=== PATIENT | female | born 1985 | race Caucasian/White ===

== ENCOUNTER 2017-10-09 17:31 | Inpatient (IN) | payer OTHER ==
[2017-10-09] MEDS: Acetaminophen 325 MG Tab PO PRN (18:58)
--- NOTE | 2017-10-09 19:29 | PCM.LDHP ---
<Marky Lou L - Last Filed: 10/09/17 20:41> L&D History of Present Illness - General Admit Problem/Dx: Patient Status Order with Admit Dx/Problem 10/09/17 17:43 Patient Status [ADT] Routine Admission Diagnosis/Problem Admission Diagnosis/Problem and not yet delivered in third trimester 10/09/17 19:47 DATE OF ADMISSION: 10/09/2017 ADMISSION DIAGNOSES: A 38 and 6/7th week intrauterine , medical induction of labor for gestational hypertension HISTORY OF PRESENT ILLNESS: This patient is a 32 year old, 4, para 3-0-0-3 female who was admitted at 38 and 6/7ths weeks gestational age with an CHARLY of 10/17/2017 for medical induction of labor due to gestational hypertension. She is Rh negative and may require Rhogam administration. Ultrasound demonstrates the presence of an accessory placental lobe anteriorly. She also has a history of epilepsy which has been well controlled with Levetiracetam 1000mg twice daily, no seizures in 2.5 years. CERTIFIED WELDER HISTORY: 4, para 3-0-0-3. The patient has an CHARLY of 10/17/2017 as confirmed by early ultrasound dating performed at 10 and 6/7ths weeks and consistent with three later ultrasounds. Definite LMP was 01/05/2017 and patient was not using any control at the time of conception. The patient was first seen for care on 03/27/2018 at 10 and 6/7ths weeks gestational age. She was seen on a regular basis throughout the duration of the . Her weight gain was approximately 31 pounds, starting with a pregravid weight of 145 pounds and with a recorded weight of 176.4 pounds at her visit today. Her vital signs have remained stable throughout the until today with BP readings at clinic being 158/87, 162/92, 144/91, and 144/82 before being sent to L & D for observation. Fundal height growth has been appropriate. The patient did have genetic testing done which was negative. She plans on breast feeding. She is group B Strep negative. She is Rh negative. PAST OBSTETRIC HISTORY: 1. Female born on 03/18/2002 at 41 weeks gestational age after 14 hours of labor - 7 pounds, 14 ounces - via normal spontaneous vaginal delivery with the use of an epidural. Child's name is Ya. 2. Male infant born on 12/25/2004 at 40 weeks gestational age after 5 hours of labor - 6 pounds, 7 ounces - via normal spontaneous vaginal delivery with the use of an epidural. Child's name is Darrell. 3. Male born on 10/25/2007 at 38 weeks gestational age after 3 hours of labor - 7 pounds, 14 ounces - via normal spontaneous vaginal delivery with the use of an epidural. Child's name is Javi. LABORATORY TESTING: Initial testing shows blood to be B negative with a negative antibody screen. Hemoglobin at first visit was 12.7 g/dL and platelets at 246,000. Rubella titer showed immunity. RPR was nonreactive. HIV and Hepatitis B assays were both negative. Chlamydia and gonorrhea assays were both negative. Second trimester testing showed hemoglobin to be 11.6 g/dL and platelets at 235,000. Her 1 hour GGT was failed at 154, but 3 hour GGT passed at 91, 160, 144, and 122. Group B Strep screen was negative. Repeat Hgb done in third trimester at 10.5 g/dL. ALLERGIES: No known drug allergies CURRENT MEDICATIONS: 1. vitamins x1 daily 2. Ferrous sulfate 325 mg 1 tablet twice daily 3. Acyclovir 400 mg 4. Levetiracetam 1000 mg 1 tablet twice daily 5. Folic acid 1 mg x4 daily PAST MEDICAL HISTORY: 1. Vaginal delivery x3 2. History of hypertension with last 3. Epilepsy, seizure-free for 2.5 years 4. History of depression after first 5. History of blood clot in intestine in 2014, unknown cause 6. Rh negative status 7. History of abnormal pap, all repeats within normal limits 8. History of ADHD 9. Intermittent cold sores PAST SURGICAL HISTORY: 1. D and C in 2008 for retained placental tissue FAMILY HISTORY: Mother is alive and healthy. Father is alive and healthy. One brother and two sisters are alive and healthy. MGM alive, smoker. MGF , mouth cancer d/ t chewing tobacco. PGM alive and healthy, history of strokes. PGF is alive and healthy. No bleeding, clotting, anesthesia, or problems noted in the family. Niece has seizure disorder and diabetes. SOCIAL HISTORY: The patient is . is Zoran Armstrong. They live in [place], [place]. She is a college graduate and works as a substitute preliminary school psychologist. She does not use alcohol, drugs, or tobacco. REVIEW OF SYSTEMS: GENERAL: Patient is doing well. Baby has been active. She is currently experiencing a headache. SKIN: Negative. CARDIOVASCULAR: No chest pain or exercise intolerance. RESPIRATORY: No shortness of breath or infectious symptoms. BREASTS: Changes associated with . Patient plans to bottle feed. GASTROINTESTINAL: Negative. GENITOURINARY: Changes associated with . MUSCULOSKELETAL: Negative. NEUROLOGIC: Negative. PHYSICAL EXAMINATION: GENERAL: Patient is a well-developed, well-nourished, pleasant female who appears her stated age. She appears anxious, but not in distress. VITAL SIGNS: Blood pressures on last evaluation in the clinic were elevated as stated above. Weight was 176 after a weight gain of 31 pounds throughout the . heart rate was 163 bpm. Height is 5 feet, 4 inches. SKIN: Warm and dry without lesions. HEENT, NECK, BACK: Within normal limits. CARDIOVASCULAR: Regular rate and rhythm without murmurs. Mildly tachycardic. RESPIRATORY: Clear with good breath sounds in all lung rosas. BREASTS: Deferred at this time having been done at initial obstetric visit and found to be normal. ABDOMEN: Protuberant with with a fundal height of 39 cm. Baby is in vertex presentation by Rikki maneuvers. GENITAL: Shows cervix to be 1 cm, 50% effaced, soft, -3 station, and mid position. EXTREMITIES: Shows trace edema to be present. NEUROLOGIC: Grossly within normal limits. ASSESSMENT: 1. A 38 and 6/7ths week intrauterine who presents to L and D for medical induction of labor secondary to gestational hypertension. 2. Rh negative. Negative antibodies on blood screen. Rhogam administered on . 3. Group B Strep screen is negative. 4. The patient plans to breastfeed. 5. Rubella titer shows immunity. 6. Presence of accessory placental lobe. PLAN: 1. Consider Cytotec to enhance cervical dilation, followed by artificial rupture of membranes and Pitocin induction of labor. 2. Ensure adequate delivery of all placental tissue. 3. Consider administration of Rhogam after delivery as per protocol. 4. Notify anesthesia for placement of an epidural when desired by the patient. 5. Support decision. 6. Analgesia for headaches as needed. 10/09/17 20:29 - History of Present Illness Pain Score: 6 - Related Data Allergies/Adverse Reactions: Allergies Allergy/AdvReac Type Severity Reaction Status Date / Time No Known Allergies Allergy Verified 10/09/17 17:43 Home Medications: Home Meds levETIRAcetam [Levetiracetam] 1 tab PO BID 10/09/17 [History] H&P Review of Systems - Review of Systems: Review Of Systems: See Below L&D Exam - Exam Exam: See Below - Vital Signs Weight: 79.923 kg Problem List Initiated/Reviewed/Updated: Yes Orders Last 24hrs: Active Orders 24 hr Category Date Time Status Patient Status [ADT] Routine ADT 10/09/17 17:43 Active Non Stress Test [RC] PER UNIT ROUTINE Care 10/09/17 17:43 Active Vital Signs [RC] PER UNIT ROUTINE Care 10/09/17 17:43 Active Regular Diet [DIET] Diet 10/09/17 Dinner Active Acetaminophen [Tylenol] Med 10/09/17 18:48 Active 650 mg PO Q4H PRN Resuscitation Status Routine Resus Stat 10/09/17 17:43 Ordered Medication Orders Acetaminophen (Tylenol) 650 mg PO Q4H PRN PRN Reason: Headache Last Admin: 10/09/17 18:58 Dose: 650 mg <Juan C Soto - Last Filed: 10/09/17 21:14> L&D History of Present Illness - General Admit Problem/Dx: Patient Status Order with Admit Dx/Problem 10/09/17 17:43 Patient Status [ADT] Routine 10/09/17 20:54 Patient Status [ADT] Routine Admission Diagnosis/Problem Admission Diagnosis/Problem Gestational hypertension L&D Exam - Vital Signs Vital Signs: Last Vital Signs Temp 37.0 C 10/09/17 20:18 Pulse 103 H 10/09/17 20:00 Resp 18 10/09/17 20:18 BP 139/98 H 10/09/17 20:00 Pulse Ox - Problem List (1) 38 weeks gestation of SNOMED Code(s): 79350085 ICD Code: Z3A.38 - 38 WEEKS GESTATION OF Status: Acute Current Visit: Yes (2) Gestational hypertension SNOMED Code(s): 20027363 ICD Code: O13.9 - GESTATIONAL HTN W/O SIGNIFICANT PROTEINURIA, UNSP TRIMESTER Status: Acute Current Visit: Yes (3) Rh negative state in antepartum period SNOMED Code(s): 791174938 ICD Code: O09.899 - SUPERVISION OF OTHER HIGH RISK PREGNANCIES, UNSP TRIMESTER; Z67.91 - UNSPECIFIED BLOOD TYPE, RH NEGATIVE Status: Acute Current Visit: Yes (4) Epilepsy SNOMED Code(s): 74473542 ICD Code: G40.909 - EPILEPSY, UNSP, NOT INTRACTABLE, WITHOUT STATUS EPILEPTICUS Status: Acute Current Visit: Yes (5) Abnormal glucose affecting SNOMED Code(s): 067044186, 849390637 ICD Code: O99.810 - ABNORMAL GLUCOSE COMPLICATING Status: Acute Current Visit: Yes Problem List Initiated/Reviewed/Updated: Yes Orders Last 24hrs: Active Orders 24 hr Category Date Time Status Patient Status [ADT] Routine ADT 10/09/17 17:43 Active Patient Status [ADT] Routine ADT 10/09/17 20:54 Ordered Activity as Tolerated [RC] PFP Care 10/09/17 20:54 Ordered Communication Order [RC] ASDIRECTED Care 10/09/17 20:54 Ordered Communication Order [RC] ASDIRECTED Care 10/09/17 20:54 Ordered Communication Order [RC] ASDIRECTED Care 10/09/17 20:54 Ordered Communication Order [RC] ASDIRECTED Care 10/09/17 20:54 Ordered Heart Tones [RC] ASDIRECTED Care 10/09/17 20:54 Ordered Monitoring [RC] INTERMITTENT Care 10/09/17 20:54 Ordered Non Stress Test [RC] PER UNIT ROUTINE Care 10/09/17 17:43 Active Notify Provider Vital Signs [RC] PRN Care 10/09/17 20:55 Ordered Notify Provider [RC] ASDIRECTED Care 10/09/17 20:54 Ordered Notify Provider [RC] ASDIRECTED Care 10/09/17 20:58 Ordered Notify Provider [RC] PFP Care 10/09/17 20:54 Ordered Notify Provider [RC] PRN Care 10/09/17 20:54 Ordered Peripheral IV Care [RC] . DIRECTED Care 10/09/17 20:54 Ordered Pump Management, Intrathecal [RC] ASDIRECTED Care 10/09/17 20:55 Ordered Urinary Catheter Assessment [RC] ASDIRECTED Care 10/09/17 20:54 Ordered Vaginal Exam [RC] ASDIRECTED Care 10/09/17 20:54 Ordered Vital Signs [RC] ASDIRECTED Care 10/09/17 20:54 Ordered Vital Signs [RC] PER UNIT ROUTINE Care 10/09/17 17:43 Active Vital Signs [RC] PER UNIT ROUTINE Care 10/09/17 20:54 Ordered Regular Diet [DIET] Diet 10/09/17 Dinner Ordered Acetaminophen [Tylenol] Med 10/09/17 18:48 Active 650 mg PO Q4H PRN Acetaminophen [Tylenol] Med 10/09/17 20:52 Ordered 650 mg PO Q6H PRN Lactated Ringers [Ringers, Lactated] 1,000 ml Med 10/09/17 21:00 Ordered IV ASDIRECTED Lactated Ringers [Ringers, Lactated] 1,000 ml Med 10/09/17 21:00 Ordered IV ASDIRECTED Misoprostol [Cytotec] Med 10/09/17 21:00 Ordered 25 mcg VAG Q3H Ondansetron [Zofran] Med 10/09/17 20:52 Ordered 4 mg IVPUSH Q4H PRN Oxytocin/Lactated Ringers [Pitocin in LR 10 Units/1,000 Med 10/09/17 21:00 Ordered ML] 10 unit in 1,000 ml IV .CONTINUOUS Sodium Chloride 0.9% [Saline Flush] Med 10/09/17 20:52 Ordered 10 ml FLUSH ASDIRECTED PRN levETIRAcetam [Keppra] Med 10/09/17 21:00 Ordered 1,000 mg PO BID oxyCODONE Med 10/09/17 21:00 Once 5 mg PO ONETIME ONE Electronic Heart Tones Ext w TOCO [WOMSER] Oth 10/09/17 20:54 Ordered Routine Electronic Heart Tones Internal [WOMSER] Per Unit Oth 10/09/17 20:54 Ordered Routine Peripheral IV Insertion Adult [OM.PC] Routine Oth 10/09/17 20:54 Ordered Peripheral IV Insertion Adult [OM.PC] Routine Oth 10/09/17 20:54 Ordered Resuscitation Status Routine Resus Stat 10/09/17 17:43 Ordered Medication Orders Acetaminophen (Tylenol) 650 mg PO Q4H PRN PRN Reason: Headache Last Admin: 10/09/17 18:58 Dose: 650 mg Acetaminophen (Tylenol) 650 mg PO Q6H PRN PRN Reason: Pain (Mild 1-3) and fever Lactated Ringer's (Ringers, Lactated) 1,000 mls @ 100 mls/hr IV ASDIRECTED [facility]LO Oxytocin/Lactated Ringer's (Pitocin In Lr 10 Units/1,000 Ml) 10 unit in 1,000 mls @ 100 mls/hr IV .CONTINUOUS [facility] P[facility]LO Lactated Ringer's (Ringers, Lactated) 1,000 mls @ 40 mls/hr IV ASDIRECTED [facility] Levetiracetam (Keppra) 1,000 mg PO BID [facility] Misoprostol (Cytotec) 25 mcg VAG Q3H [facility] Stop: 10/10/17 03:01 Ondansetron HCl (Zofran) 4 mg IVPUSH Q4H PRN PRN Reason: Nausea/Vomiting Oxycodone HCl (Oxycodone) 5 mg PO ONETIME ONE Stop: 10/09/17 21:01 Sodium Chloride (Saline Flush) 10 ml FLUSH ASDIRECTED PRN PRN Reason: Keep Vein Open Assessment/Plan Comment:: I have seen and evaluated patient with the student and agree with her findings. Plan for induction of labor in the setting of gestational hypertension. Plan for initial induction with cytotec 25 mcg with plan for recheck in 3 hours. Patient plans to breast feed. May have intermittent monitoring. Juan C Soto MD 9:13 PM 10/09/2017
[2017-10-09] MEDS ORDERED: Misoprostol 25 MCG (1/4 of 100 MCG) Tab ONE (20:40)
[2017-10-09] MEDS: Misoprostol 25 MCG (1/4 of 100 MCG) Tab VAG SCH (20:50)
[2017-10-09] MEDS ORDERED: Sodium Chloride 0.9% 10 ML Syringe FLUSH PRN (20:52)
[2017-10-09] MEDS ORDERED: Acetaminophen 325 MG Tab PO PRN (20:52)
[2017-10-09] MEDS ORDERED: Lactated Ringers 1,000 ML IV SCH (21:00)
[2017-10-09] MEDS ORDERED: Oxytocin/Lactated Ringers 10 UNIT/1,000 ML BAG IV SCH (21:00)
[2017-10-09] MEDS ORDERED: oxyCODONE 5 MG Tab PO ONE (21:00)
[2017-10-09] MEDS ORDERED: levETIRAcetam 500 MG Tab PO SCH (21:00)
[2017-10-09] MEDS ORDERED: ePHEDrine 50 MG/ML SDV IVPUSH PRN (23:07)
[2017-10-09] MEDS ORDERED: Ondansetron 4 MG/2 ML SDV IVPUSH PRN (23:07)
--- NOTE | 2017-10-09 23:11 | PCM.PREANE ---
Preanesthetic Assessment - Anesthesia/Transfusion/Family Hx Anesthesia History: Prior Anesthesia Without Reaction Family History of Anesthesia Reaction: No Transfusion History: No Prior Transfusion(s) Intubation History: Unknown - Review of Systems General: No Symptoms Pulmonary: No Symptoms Cardiovascular: No Symptoms (Gestational HTN) Gastrointestinal: No Symptoms (GERD) Neurological: No Symptoms (History of ADHD), Headache, Seizure (Last seizure = 2.5 yrs/History of epilepsy controlled with levetiracetam), Tingling (CTS bilaterally with ) Other: Reports: Anxiety - Physical Assessment NPO Status Date: 10/09/17 NPO Status Time: 18:30 Pulse: 103 O2 Sat by Pulse Oximetry: 99 Respiratory Rate: 18 Blood Pressure: 139/98 Temperature: 37 C Vital Signs: Last Vital Signs Temp 37.0 C 10/09/17 20:18 Pulse 103 H 10/09/17 20:00 Resp 18 10/09/17 20:18 BP 139/98 H 10/09/17 20:00 Pulse Ox Height: 1.62 m Weight: 79.923 kg ASA Class: 2 Mental Status: Alert & Oriented x3 Airway Class: Mallampati = 2 Dentition: Reports: Normal Dentition, Caries Thyro-Mental Finger Breadths: 3 Mouth Opening Finger Breadths: 3 ROM/Head Extension: Full Lungs: Clear to Auscultation, Normal Respiratory Effort Cardiovascular: Regular Rate, Regular Rhythm - Lab Values: Platelets= 217,000/all lab values reviewed and noted and within acceptable ranges to proceed with requested epidural. - Allergies Allergies/Adverse Reactions: Allergies Allergy/AdvReac Type Severity Reaction Status Date / Time No Known Allergies Allergy Verified 10/09/17 17:43 - Anesthesia Plan Pre-Op Medication Ordered: None - Acknowledgements Anesthesia Type Planned: Epidural Pt an Appropriate Candidate for the Planned Anesthesia: Yes Alternatives and Risks of Anesthesia Discussed w Pt/Guardian: Yes Pt/Guardian Understands and Agrees with Anesthesia Plan: Yes PreAnesthesia Questionnaire HEENT History: Reports: None [employer] History: Reports: Neurological History: Reports: Headaches, Chronic, Seizure - Infectious Disease History Infectious Disease History: Reports: Herpes Other Infectious Disease History: intermittent cold sores on mouth - SUBSTANCE USE Smoking Status *Q: Never Smoker Second Hand Smoke Exposure: No Recreational Drug Use History: No - HOME MEDS Home Medications: Home Meds levETIRAcetam [Levetiracetam] 1 tab PO BID 10/09/17 [History] - CURRENT (IN HOUSE) MEDS Current Meds: Current Medications Acetaminophen (Tylenol) 650 mg PO Q4H PRN PRN Reason: Headache Last Admin: 10/09/17 18:58 Dose: 650 mg Acetaminophen (Tylenol) 650 mg PO Q6H PRN PRN Reason: Pain (Mild 1-3) and fever Lactated Ringer's (Ringers, Lactated) 1,000 mls @ 100 mls/hr IV ASDIRECTED [facility] PABLO Oxytocin/Lactated Ringer's (Pitocin In Lr 10 Units/1,000 Ml) 10 unit in 1,000 mls @ 100 mls/hr IV ASDIRECTED [facility] PABLO Lactated Ringer's (Ringers, Lactated) 1,000 mls @ 40 mls/hr IV ASDIRECTED [facility] PABLO Misoprostol (Cytotec) 25 mcg VAG Q3H [facility] P[facility]LO Stop: 10/10/17 03:01 Last Admin: 10/09/17 20:50 Dose: 25 mcg Levetiracetam 1000mg (TabOwn Med) 1 each PO BID [facility] Ondansetron HCl (Zofran) 4 mg IVPUSH Q4H PRN PRN Reason: Nausea/Vomiting Sodium Chloride (Saline Flush) 10 ml FLUSH ASDIRECTED PRN PRN Reason: Keep Vein Open Discontinued Medications Levetiracetam (Keppra) 1,000 mg PO BID [facility] Misoprostol (Cytotec) Confirm Administered Dose 25 mcg .ROUTE .STK-MED ONE Stop: 10/09/17 20:41 Last Admin: 10/09/17 21:16 Dose: Not Given Oxycodone HCl (Oxycodone) 5 mg PO ONETIME ONE Stop: 10/09/17 21:01 Last Admin: 10/09/17 21:19 Dose: 5 mg
[2017-10-10] MEDS: Misoprostol 25 MCG (1/4 of 100 MCG) Tab VAG SCH ×4 (00:12→22:15)
[2017-10-10] MEDS: Lactated Ringers 1,000 ML IV SCH ×5 (00:56→17:20)
[2017-10-10] MEDS: Bupivacaine/fentaNYL/NS 100 ML Bag EPIDUR SCH ×2 (01:28→17:17)
[2017-10-10] MEDS: fentaNYL 100 MCG/2 ML SDV EPIDUR PRN (01:28)
[2017-10-10] MEDS: Acetaminophen 325 MG Tab PO PRN (01:57)
[2017-10-10] MEDS: Ondansetron 4 MG/2 ML SDV IVPUSH PRN (04:05)
[2017-10-10] MEDS: Oxytocin/Lactated Ringers 10 UNIT/1,000 ML BAG IV SCH ×2 (05:19→22:13)
[2017-10-10] MEDS ORDERED: Acetaminophen/Butalbital/Caffeine 325-50-40 MG Tab PO PRN (14:48)
--- NOTE | 2017-10-10 17:28 | PCM.PNLD ---
Labor Progress Note - VS & Meds Vital Signs: Last Vital Signs Temp 37 C 10/10/17 01:26 Pulse 103 H 10/10/17 01:26 Resp 18 10/10/17 01:26 BP 139/98 H 10/10/17 01:26 Pulse Ox 99 10/10/17 01:26 Active Medications: Current Medications Acetaminophen (Tylenol) 650 mg PO Q6H PRN PRN Reason: Pain (Mild 1-3) and fever Last Admin: 10/10/17 09:23 Dose: 650 mg Acetaminophen/Butalbital/Caffeine (Fioricet 325-50-40 Mg) 2 tab PO Q6H PRN PRN Reason: Headache Last Admin: 10/10/17 15:09 Dose: 2 tab Ephedrine Sulfate (Ephedrine Sulfate) 5 mg IVPUSH ASDIRECTED PRN PRN Reason: Hypotension Fentanyl (Sublimaze) 100 mcg EPIDUR Q3H PRN PRN Reason: Pain Last Admin: 10/10/17 01:28 Dose: 100 mcg Fentanyl/Bupivacaine HCl (Fentanyl/Bupivacaine/Ns 2 Mcg-0.125% 100 Ml) 100 ml EPIDUR ASDIRECTED [facility] PABLO Last Admin: 10/10/17 17:17 Dose: 100 ml Lactated Ringer's (Ringers, Lactated) 1,000 mls @ 100 mls/hr IV ASDIRECTED JUAN PABLO Last Admin: 10/10/17 17:20 Dose: 250 mls/hr Oxytocin/Lactated Ringer's (Pitocin In Lr 10 Units/1,000 Ml) 10 unit in 1,000 mls @ 100 mls/hr IV ASDIRECTED [facility] PABLO Lactated Ringer's (Ringers, Lactated) 1,000 mls @ 40 mls/hr IV ASDIRECTED [facility] PABLO Oxytocin/Lactated Ringer's (Pitocin In Lr 10 Units/1,000 Ml) 10 unit in 1,000 mls @ 12 mls/hr IV TITRATE JUAN PABLO; Protocol Last Titration: 10/10/17 17:20 Dose: 0 munits/min, 0 mls/hr Levetiracetam 1000mg (TabOwn Med) 1 each PO BID [facility] Ondansetron HCl (Zofran) 4 mg IVPUSH Q4H PRN PRN Reason: Nausea/Vomiting Last Admin: 10/10/17 04:05 Dose: 4 mg Ondansetron HCl (Zofran) 4 mg IVPUSH ONETIME PRN PRN Reason: Nausea/Vomiting Sodium Chloride (Saline Flush) 10 ml FLUSH ASDIRECTED PRN PRN Reason: Keep Vein Open Discontinued Medications Acetaminophen (Tylenol) 650 mg PO Q4H PRN PRN Reason: Headache Last Admin: 10/10/17 01:57 Dose: 650 mg Levetiracetam (Keppra) 1,000 mg PO BID [facility] Last Admin: 10/10/17 04:31 Dose: Not Given Misoprostol (Cytotec) Confirm Administered Dose 25 mcg .ROUTE .STK-MED ONE Stop: 10/09/17 20:41 Last Admin: 10/09/17 21:16 Dose: Not Given Misoprostol (Cytotec) 25 mcg VAG Q3H [facility] Stop: 10/10/17 03:01 Last Admin: 10/10/17 04:30 Dose: Not Given Oxycodone HCl (Oxycodone) 5 mg PO ONETIME ONE Stop: 10/09/17 21:01 Last Admin: 10/09/17 21:19 Dose: 5 mg - Uterine Contractions Uterine Monitoring Mode: External [place] Contraction Frequency (min): 2-3 Contraction Duration (sec): 45-60 Contraction Intensity: Moderate to Strong - Monitoring Monitor Mode: Doppler/Auscultation Heart Rate (FHR) Variability: Moderate (6-25 bmp) Accelerations: Present, 15x15 Decelerations: None Strip Review: Category I - Vaginal Exam Dilation (cm): 3 Effacement (Percent): 80 Station: -3 Cervical Position: Midposition Sterile Vaginal Exam Performed By: Juan C Soto Vaginal Exam Comment: Firm internal os - Labor Progress (Free Text) Labor Progress: Patient continue with induction using Pitocin up to 18 mU/h of Pitocin. Continues to have regular contractions every 2-3 minutes with category 1 tracing. Discussed options with patient in the setting of unchanged cervical exam with 12 hours on Pitocin. Discussed continuing with Pitocin versus changing to Cytotec with or without Rinaldi bulb for either method. Patient desires to change to Cytotec with Rinaldi bulb placed. A 16 Greek Rinaldi catheter was placed through the cervical os and inflated with 60 mL of fluid. This is placed on traction. We will stop the Pitocin at this time and wait a half hour before starting Cytotec. Continue to monitor closely. Juan C Soto MD 5:28 PM 10/10/2017
[2017-10-10] MEDS ORDERED: oxyCODONE 5 MG Tab PO ONE (18:07)
--- NOTE | 2017-10-10 21:53 | PCM.PNLD ---
Labor Progress Note - VS & Meds Vital Signs: Last Vital Signs Temp 37 C 10/10/17 01:26 Pulse 96 10/10/17 18:00 Resp 18 10/10/17 01:26 BP 128/94 H 10/10/17 01:30 Pulse Ox 99 10/10/17 03:30 Active Medications: Current Medications Acetaminophen (Tylenol) 650 mg PO Q6H PRN PRN Reason: Pain (Mild 1-3) and fever Last Admin: 10/10/17 09:23 Dose: 650 mg Acetaminophen/Butalbital/Caffeine (Fioricet 325-50-40 Mg) 2 tab PO Q6H PRN PRN Reason: Headache Last Admin: 10/10/17 15:09 Dose: 2 tab Ephedrine Sulfate (Ephedrine Sulfate) 5 mg IVPUSH ASDIRECTED PRN PRN Reason: Hypotension Fentanyl (Sublimaze) 100 mcg EPIDUR Q3H PRN PRN Reason: Pain Last Admin: 10/10/17 01:28 Dose: 100 mcg Fentanyl/Bupivacaine HCl (Fentanyl/Bupivacaine/Ns 2 Mcg-0.125% 100 Ml) 100 ml EPIDUR ASDIRECTED [facility] Last Admin: 10/10/17 17:17 Dose: 100 ml Lactated Ringer's (Ringers, Lactated) 1,000 mls @ 100 mls/hr IV ASDIRECTED [facility] Last Admin: 10/10/17 17:20 Dose: 250 mls/hr Oxytocin/Lactated Ringer's (Pitocin In Lr 10 Units/1,000 Ml) 10 unit in 1,000 mls @ 100 mls/hr IV ASDIRECTED [facility] Lactated Ringer's (Ringers, Lactated) 1,000 mls @ 40 mls/hr IV ASDIRECTED [facility] Misoprostol (Cytotec) 25 mcg VAG Q3H [facility] Stop: 10/10/17 23:46 Last Admin: 10/10/17 18:28 Dose: 25 mcg Levetiracetam 1000mg (TabOwn Med) 1 each PO BID [facility] Ondansetron HCl (Zofran) 4 mg IVPUSH Q4H PRN PRN Reason: Nausea/Vomiting Last Admin: 10/10/17 04:05 Dose: 4 mg Ondansetron HCl (Zofran) 4 mg IVPUSH ONETIME PRN PRN Reason: Nausea/Vomiting Sodium Chloride (Saline Flush) 10 ml FLUSH ASDIRECTED PRN PRN Reason: Keep Vein Open Discontinued Medications Acetaminophen (Tylenol) 650 mg PO Q4H PRN PRN Reason: Headache Last Admin: 10/10/17 01:57 Dose: 650 mg Oxytocin/Lactated Ringer's (Pitocin In Lr 10 Units/1,000 Ml) 10 unit in 1,000 mls @ 12 mls/hr IV TITRATE JUAN PABLO; Protocol Last Titration: 10/10/17 17:20 Dose: 0 munits/min, 0 mls/hr Levetiracetam (Keppra) 1,000 mg PO BID [facility] Last Admin: 10/10/17 04:31 Dose: Not Given Misoprostol (Cytotec) Confirm Administered Dose 25 mcg .ROUTE .STK-MED ONE Stop: 10/09/17 20:41 Last Admin: 10/09/17 21:16 Dose: Not Given Misoprostol (Cytotec) 25 mcg VAG Q3H [facility] Stop: 10/10/17 03:01 Last Admin: 10/10/17 04:30 Dose: Not Given Oxycodone HCl (Oxycodone) 5 mg PO ONETIME ONE Stop: 10/09/17 21:01 Last Admin: 10/09/17 21:19 Dose: 5 mg Oxycodone HCl (Oxycodone) 5 mg PO ONETIME ONE Stop: 10/10/17 18:08 Last Admin: 10/10/17 18:27 Dose: 5 mg - Uterine Contractions Uterine Monitoring Mode: External [place] Contraction Frequency (min): 5-7 Contraction Duration (sec): 45-60 Contraction Intensity: Moderate - Monitoring Monitor Mode: Doppler/Auscultation Heart Rate (FHR) Baseline: 125 Heart Rate (FHR) Variability: Moderate (6-25 bmp) Accelerations: Present, 15x15 Decelerations: None Strip Review: Category I - Vaginal Exam Dilation (cm): 5 Effacement (Percent): 90 Station: -3 Cervical Position: Anterior Sterile Vaginal Exam Performed By: Juan C Soto Vaginal Exam Comment: soft cervical exam, grove bulb removed without difficulty - Labor Progress (Free Text) Labor Progress: Good cervical change with grove bulb removed Start on pitocin for induction of labor Continue epidural Continue monitoring Anticipate vaginal delivery unless otherwise indicated. Juan C Soto MD 9:53 PM 10/10/2017
[2017-10-10] MEDS ORDERED: Oxytocin/Lactated Ringers 10 UNIT/1,000 ML BAG IV SCH (22:00)
[2017-10-10] MEDS: LEVETIRACETAM 1000 MG PO SCH (22:15)
[2017-10-11] MEDS: Bupivacaine/fentaNYL/NS 100 ML Bag EPIDUR SCH ×2 (02:00→09:39)
[2017-10-11] MEDS ORDERED: Bupivacaine 0.25% 10 ML SDV ONE (02:00)
[2017-10-11] MEDS: LEVETIRACETAM 1000 MG PO SCH ×2 (09:04→21:09)
[2017-10-11] MEDS: Ondansetron 4 MG/2 ML SDV IVPUSH PRN (09:04)
[2017-10-11] MEDS: fentaNYL 100 MCG/2 ML SDV EPIDUR PRN (10:21)
[2017-10-11] MEDS: Lactated Ringers 1,000 ML IV SCH (10:59)
[2017-10-11] MEDS ORDERED: Misoprostol 200 MCG Tab ONE (11:15)
[2017-10-11] MEDS ORDERED: Carboprost Tromethamine 250 MCG/1 ML Amp ONE (11:44)
[2017-10-11] MEDS ORDERED: Atropine/Diphenoxylate 0.025-2.5 MG Tab PO ONE (12:02)
[2017-10-11] MEDS ORDERED: Hydrocortisone Acetate 25 MG Supp RECTAL PRN (12:11)
[2017-10-11] MEDS ORDERED: Carboprost Tromethamine 250 MCG/1 ML Amp IM PRN (12:11)
[2017-10-11] MEDS ORDERED: Lanolin 100% Cream 7 GM Tube TOP PRN (12:11)
[2017-10-11] MEDS ORDERED: Oxytocin/Lactated Ringers 10 UNIT/1,000 ML BAG IV SCH ×2 (12:15→23:00)
--- NOTE | 2017-10-11 12:17 | PCM.DEL ---
L & D Note - General Info Date of Service: 10/11/17 Mother's Due Date: 10/17/17 - Delivery Note Labor: Augmented by ARM, Augmented by Oxytocin Cervical Ripening Method: Balloon Device, Misoprostil, Oxytocin Delivery Outcome: Livebirth Infant Delivery Method: Spontaneous Vaginal Delivery-Single Presentation: Left Occiput Anterior (GERMÁN) Nuchal Cord: Present Anesthesia Type: Epidural Amniotic Fluid Description: Clear Episiotomy Type: None Laceration: 1st Degree (Not repaired, hemostatic), Vaginal Placenta: Intact (accessory lobe present) Cord: 3 Vessels Estimated Blood Loss: 400 Resuscitation Needed: No : Suctioned, Stimulated, Warmed, Blaine Used Provider: Zack Mackenzie Score 1 min: 8 Score 5 min: 9 Delivery Comments (Free Text/Narrative):: Stage I: Erin Armstrong was admitted for induction of labor in the setting of gestational hypertension. On admission her cervix was dilated to 1 cm. She was GBS negative. She was given 3 doses of 25 mcg of Cytotec initially and then transitioned to Pitocin for augmentation. She was given an epidural for anesthesia. On induction day #2 she had minimal progress on Pitocin and this was stopped. She had a Rinaldi bulb placed with 60 mL of fluid in the balloon was placed on traction. She was restarted on Cytotec 25 mcg once vaginally. On next check the cervix was dilated to 5 cm and the Rinaldi bulb was able to be removed intact. She was started on Pitocin for continued augmentation. She was continued on Pitocin throughout the night and had little progress in the morning and had artificial rupture membranes with minimal amount of clear fluid. After rupture of membranes she progressed from 6 cm to complete over the next 2.5 hours. She began pushing. Stage II: On 10/11/2017 she had a normal vaginal delivery of a live male infant at 1131. Apgars of 8 & 9. Weight and length unknown at time of dictation. There was a single nuchal cord that was not reduced prior to delivery. was delivered in GERMÁN position. The cord was doubly clamped and cut by father of infant. Infant was placed on mother's abdomen. Stage III: She had a spontaneous delivery of an intact placenta in Evaristo presentation. Three vessel cord. Of note there was an accessory lobe that was delivered with the placenta. This was known from ultrasounds. She was given pitocin and fundal massage. She had a small first-degree laceration in the vaginal mucosa that was hemostatic and not repaired. Patient had uterine atony and was given 600 mcg of Cytotec rectally. She continued to have uterine atony and was given Hemabate 250 mcg IM 1. She had good uterine tone after administration of Hemabate. Mom and baby were stable to recovery. EBL of 400 mL. Juan C Soto MD 12:16 PM 10/11/2017 - Patient Data Vitals - Most Recent: Last Vital Signs Temp 37 C 10/10/17 01:26 Pulse 96 10/10/17 18:00 Resp 18 10/10/17 01:26 BP 128/94 H 10/10/17 01:30 Pulse Ox 99 10/10/17 03:30 Weight - Most Recent: 79.923 kg I&O - Last 24 Hours: Intake & Output 10/10/17 10/11/17 10/11/17 22:59 06:59 14:59 Intake Total 0 1600 2000 Output Total 2100 Balance 0 1600 -100 Med Orders - Current: Current Medications Acetaminophen (Tylenol) 650 mg PO Q6H PRN PRN Reason: Pain (Mild 1-3) and fever Last Admin: 10/10/17 09:23 Dose: 650 mg Acetaminophen/Butalbital/Caffeine (Fioricet 325-50-40 Mg) 2 tab PO Q6H PRN PRN Reason: Headache Last Admin: 10/10/17 15:09 Dose: 2 tab Ephedrine Sulfate (Ephedrine Sulfate) 5 mg IVPUSH ASDIRECTED PRN PRN Reason: Hypotension Fentanyl (Sublimaze) 100 mcg EPIDUR Q3H PRN PRN Reason: Pain Last Admin: 10/11/17 10:21 Dose: 100 mcg Fentanyl/Bupivacaine HCl (Fentanyl/Bupivacaine/Ns 2 Mcg-0.125% 100 Ml) 100 ml EPIDUR ASDIRECTED JUAN PABLO Last Admin: 10/11/17 09:39 Dose: 100 ml Lactated Ringer's (Ringers, Lactated) 1,000 mls @ 100 mls/hr IV ASDIRECTED JUAN PABLO Last Admin: 10/11/17 10:59 Dose: 250 mls/hr Oxytocin/Lactated Ringer's (Pitocin In Lr 10 Units/1,000 Ml) 10 unit in 1,000 mls @ 100 mls/hr IV ASDIRECTED JUAN PABLO Lactated Ringer's (Ringers, Lactated) 1,000 mls @ 40 mls/hr IV ASDIRECTED JUAN PABLO Oxytocin/Lactated Ringer's (Pitocin In Lr 10 Units/1,000 Ml) 10 unit in 1,000 mls @ 12 mls/hr IV TITRATE JUAN PABLO; Protocol Last Admin: 10/11/17 11:22 Dose: 10 munits/min, 60 mls/hr Ondansetron HCl (Zofran) 4 mg IVPUSH Q4H PRN PRN Reason: Nausea/Vomiting Last Admin: 10/11/17 09:04 Dose: 4 mg Ondansetron HCl (Zofran) 4 mg IVPUSH ONETIME PRN PRN Reason: Nausea/Vomiting Levetiracetam 1000mg (TabOwn Med) 0 each PO BID JUAN PABLO Sodium Chloride (Saline Flush) 10 ml FLUSH ASDIRECTED PRN PRN Reason: Keep Vein Open Discontinued Medications Acetaminophen (Tylenol) 650 mg PO Q4H PRN PRN Reason: Headache Last Admin: 10/10/17 01:57 Dose: 650 mg Carboprost Tromethamine (Hemabate Ds) Confirm Administered Dose 250 mcg .ROUTE .STK-MED ONE Stop: 10/11/17 11:45 Diphenoxylate HCl/Atropine (Lomotil 0.025-2.5 Mg) 1 tab PO ONETIME ONE Stop: 10/11/17 12:03 Oxytocin/Lactated Ringer's (Pitocin In Lr 10 Units/1,000 Ml) 10 unit in 1,000 mls @ 12 mls/hr IV TITRATE JUAN PABLO; Protocol Last Titration: 10/11/17 07:22 Dose: 20 munits/min, 120 mls/hr Oxytocin/Lactated Ringer's (Pitocin In Lr 10 Units/1,000 Ml) 10 unit in 1,000 mls @ 12 mls/hr IV TITRATE JUAN PABLO; Protocol Levetiracetam (Keppra) 1,000 mg PO BID JUAN PABLO Last Admin: 10/10/17 04:31 Dose: Not Given Misoprostol (Cytotec) Confirm Administered Dose 25 mcg .ROUTE .STK-MED ONE Stop: 10/09/17 20:41 Last Admin: 10/09/17 21:16 Dose: Not Given Misoprostol (Cytotec) 25 mcg VAG Q3H JUAN PABLO Stop: 10/10/17 03:01 Last Admin: 10/10/17 04:30 Dose: Not Given Misoprostol (Cytotec) 25 mcg VAG Q3H [facility] [place] Stop: 10/10/17 23:46 Last Admin: 10/10/17 22:15 Dose: Not Given Misoprostol (Cytotec) Confirm Administered Dose 600 mcg .ROUTE .STK-MED ONE Stop: 10/11/17 11:16 Levetiracetam 1000mg (TabOwn Med) 1 each PO BID JUAN PABLO Last Admin: 10/11/17 09:04 Dose: 1 each Oxycodone HCl (Oxycodone) 5 mg PO ONETIME ONE Stop: 10/09/17 21:01 Last Admin: 10/09/17 21:19 Dose: 5 mg Oxycodone HCl (Oxycodone) 5 mg PO ONETIME ONE Stop: 10/10/17 18:08 Last Admin: 10/10/17 18:27 Dose: 5 mg - Problem List & Annotations (1) 38 weeks gestation of SNOMED Code(s): 33886428 Code(s): Z3A.38 - 38 WEEKS GESTATION OF Status: Acute Current Visit: Yes (2) Gestational hypertension SNOMED Code(s): 42854774 Code(s): O13.9 - GESTATIONAL HTN W/O SIGNIFICANT PROTEINURIA, UNSP TRIMESTER Status: Acute Current Visit: Yes (3) Rh negative state in antepartum period SNOMED Code(s): 606597698 Code(s): O09.899 - SUPERVISION OF OTHER HIGH RISK PREGNANCIES, UNSP TRIMESTER ; Z67.91 - UNSPECIFIED BLOOD TYPE, RH NEGATIVE Status: Acute Current Visit: Yes (4) Epilepsy SNOMED Code(s): 72981828 Code(s): G40.909 - EPILEPSY, UNSP, NOT INTRACTABLE, WITHOUT STATUS EPILEPTICUS Status: Acute Current Visit: Yes (5) Abnormal glucose affecting SNOMED Code(s): 480964880, 334142564 Code(s): O99.810 - ABNORMAL GLUCOSE COMPLICATING Status: Acute Current Visit: Yes (6) (normal spontaneous vaginal delivery) SNOMED Code(s): 24710086 Code(s): O80 - ENCOUNTER FOR FULL-TERM UNCOMPLICATED DELIVERY Status: Acute Current Visit: Yes (7) First degree laceration of perineum, delivered, current hospitalization SNOMED Code(s): 371871739 Code(s): O70.0 - FIRST DEGREE PERINEAL LACERATION DURING DELIVERY Status: Acute Current Visit: Yes - Problem List Review Problem List Initiated/Reviewed/Updated: Yes - My Orders Last 24 Hours: My Active Orders 10/10/17 14:48 Acetaminophen/Butalbital/Caff [Fioricet 325-50-40 MG] 2 tab PO Q6H PRN 10/10/17 22:00 Oxytocin/Lactated Ringers [Pitocin in LR 10 Units/1,000 ML] 10 unit in 1,000 ml IV TITRATE 10/11/17 12:03 Patient Status Manage Transfer [TRANSFER] Routine 10/11/17 21:00 Patient's Own Medication [Ptom] 0 each PO BID - Plan Plan:: Admit to inpatient following normal spontaneous vaginal delivery Continue to monitor vital signs closely including blood pressure and setting of gestational hypertension continue to monitor lochia closely with uterine atony during third stage of labor assist with breast-feeding as needed anticipate discharge home on day #1 or 2. Juan C Soto MD 12:19 PM 10/11/2017
[2017-10-11] MEDS: Prenatal Multivitamin with Calcium/Folic Acid/Iron Tab PO SCH (12:24)
[2017-10-11] MEDS: Benzocaine/Menthol 20%-0.5% Spray 56 GM Canister TOP PRN ×2 (13:01→15:49)
[2017-10-11] MEDS: Witch Hazel Medicated Pads 100/Jar TOP PRN ×2 (13:01→15:50)
[2017-10-11] MEDS: Misoprostol 25 MCG (1/4 of 100 MCG) Tab VAG SCH (13:04)
--- NOTE | 2017-10-11 14:21 | PCM48HPAN ---
Post Anesthesia Note - EVALUATION WITHIN 48HRS OF ANESTHETIC Vital Signs in Normal Range: Yes Patient Participated in Evaluation: Yes Respiratory Function Stable: Yes Airway Patent: Yes Cardiovascular Function Stable: Yes Hydration Status Stable: Yes Pain Control Satisfactory: Yes (Epidural kicked in after she put her legs up- was comfortable) Nausea and Vomiting Control Satisfactory: Yes Mental Status Recovered: Yes Pulse Rate: 96 Resp Rate: 18 Temperature: 98.6 F Blood Pressure: 128/94
[2017-10-11] MEDS ORDERED: HYDROmorphone 0.5 MG/0.5 ML Syringe IVPUSH ONE (14:46)
[2017-10-11] MEDS: Ibuprofen 600 MG Tab PO PRN ×2 (15:49→22:57)
[2017-10-11] MEDS: Acetaminophen 325 MG Tab PO PRN (21:08)
[2017-10-12] MEDS: Acetaminophen 325 MG Tab PO PRN (03:24)
[2017-10-12] MEDS: Prenatal Multivitamin with Calcium/Folic Acid/Iron Tab PO SCH ×2 (07:56→15:34)
[2017-10-12] MEDS: Ibuprofen 600 MG Tab PO PRN ×2 (07:56→19:30)
[2017-10-12] MEDS ORDERED: diphenhydrAMINE 50 MG/ML SDV IV ONE (08:25)
[2017-10-12] MEDS ORDERED: Acetaminophen 325 MG Tab PO ONE (08:25)
[2017-10-12] MEDS ORDERED: Sodium Chloride 0.9% 10 ML Syringe FLUSH PRN (08:25)
[2017-10-12] MEDS ORDERED: Sodium Chloride 0.9% 1,000 ML IV SCH (08:30)
--- NOTE | 2017-10-12 08:34 | PCM.SN ---
- Free Text/Narrative Note: Late entry from 10/11/2017 at approximately 1700 Subjective: Patient continue to have significant pain and cramping after delivery. Nurse noted that patient was continuing to have significant bleeding. Also passing large clots. Nurse later reported that patient had minimal voids with use of the bathroom. Objective: Gen.: Mild distress, alert and oriented Lungs: Unlabored breathing Abdomen: Soft, mild diffuse tenderness, no guarding or rebound, no distention Pelvis: Small amount of bright red bleeding from the vagina, approximately 100 mL of blood clot removed from vagina, firm uterus after removal of blood clot, moderate amount of perineal edema Assessment/plan 32-year-old status post with suspected hemorrhage and significant edema causing urinary retention * Rinaldi catheter placed with relief of pain and approximately 500 mL of urine voided immediately. Patient with good pain relief after placement of Rinaldi catheter * Will recheck CBC in the morning to check for possible acute blood loss anemia * Continue to monitor lochia closely * Monitor blood pressure and other vital signs * Assist with breast-feeding as needed * Anticipate discharge home on either day #1 or 2 Juan C Soto M.D. 8:34 AM 10/12/2017
--- NOTE | 2017-10-12 08:41 | PCM.SN ---
- Free Text/Narrative Note: Post Progress Note PPD # 1 Subjective: Doing well overall. Ambulating without difficulty. Lochia minimal. Rinaldi catheter in place with clear yellow urine. Tolerating regular diet without nausea or vomiting. Pain fairly well controlled with oral medications. Breast feeding with minimal difficulty. Denies any dizziness or lightheadedness. Denies any shortness of breath Objective: Vitals: Vital Signs - 24 hr 10/11/17 10/11/17 10/11/17 09:00 09:30 10:00 Temperature Pulse, 99 99 87 Peripheral Pulse, Peripheral [ Pulse Oximetry] Respiratory Rate Blood Pressure Blood Pressure [Right Arm] O2 Sat by Pulse Oximetry 10/11/17 10/11/17 10/11/17 10:30 11:00 11:30 Temperature Pulse, 102 H 114 H 124 H Peripheral Pulse, Peripheral [ Pulse Oximetry] Respiratory Rate Blood Pressure Blood Pressure [Right Arm] O2 Sat by Pulse Oximetry 10/11/17 10/11/17 10/11/17 12:01 12:30 13:36 Temperature Pulse, 119 H 102 H 92 Peripheral Pulse, Peripheral [ Pulse Oximetry] Respiratory Rate Blood Pressure 103/80 133/70 127/78 Blood Pressure [Right Arm] O2 Sat by Pulse Oximetry 10/11/17 10/11/17 10/11/17 14:21 14:26 14:30 Temperature 37 C Pulse, 96 80 Peripheral Pulse, 83 Peripheral [ Pulse Oximetry] Respiratory 18 Rate Blood Pressure 128/94 H 126/68 Blood Pressure 126/68 [Right Arm] O2 Sat by Pulse 95 95 Oximetry 10/11/17 10/11/17 10/11/17 14:36 14:45 15:56 Temperature Pulse, 77 Peripheral Pulse, 95 77 Peripheral [ Pulse Oximetry] Respiratory 14 Rate Blood Pressure 132/76 Blood Pressure 137/83 127/95 H [Right Arm] O2 Sat by Pulse 95 99 97 Oximetry 10/11/17 10/12/17 10/12/17 20:10 03:24 03:58 Temperature 36.5 C 36.2 C 36.6 C Pulse, 82 82 76 Peripheral Pulse, Peripheral [ Pulse Oximetry] Respiratory 16 14 16 Rate Blood Pressure 120/66 100/40 L 100/61 Blood Pressure [Right Arm] O2 Sat by Pulse 97 96 97 Oximetry Physical Exam General: Alert and oriented, no acute distress Lungs: Clear to auscultation bilaterally Heart: Regular rate and rhythm Abdomen: Soft, minimal appropriate tenderness, non-distended, fundus midline, nontender, and below the umbilicus Pelvis: Rinaldi catheter in place, minimal amount of lochia, minimal swelling of peritoneum Extremities: 1+ edema in bilateral lower extremities to mid shins Laboratory Tests 10/11/17 10/12/17 Range/Units 17:32 06:16 WBC 9.05 (3.98-10.04) K/mm3 RBC 2.21 L (3.98-5.22) M/mm3 Hgb 6.4 L* (11.2-15.7) gm/L Hct 20.2 L (34.1-44.9) % MCV 91.4 (79.4-94.8) fl MCH 29.0 (25.6-32.2) pg MCHC 31.7 L (32.2-35.5) g/dl RDW Std Deviation 46.7 H (36.4-46.3) fL Plt Count 200 (182-369) K/mm3 MPV 9.3 L (9.4-12.3) fl Neut % (Auto) 75.2 H (34.0-71.1) % Lymph % (Auto) 16.0 L (19.3-51.7) % [place] % (Auto) 6.9 (4.7-12.5) % Eos % (Auto) 1.7 (0.7-5.8) Baso % (Auto) 0.1 (0.1-1.2) % Neut # (Auto) 6.81 H (1.56-6.13) K/mm3 Lymph # (Auto) 1.45 (1.18-3.74) K/mm3 [place] # (Auto) 0.62 H (0.24-0.36) K/mm3 Eos # (Auto) 0.15 (0.04-0.36) K/mm3 Baso # (Auto) 0.01 (0.01-0.08) K/mm3 Manual Slide Review Abnormal smear Blood Type B NEGATIVE Gel Antibody Screen Positive Screen 1 ros/5 flds - neg RhIG Candidate? Yes Rhogam Indicated Yes, baby rh pos H Crossmatch See Detail ASSESSMENT: 32-year-old female G 4 P 4004 s/p normal vaginal delivery complicated by delayed hemorrhage PPD #1, complicated by gestational hypertension, epilepsy and Rh- status PLAN: Doing well Breast feeding with minimal difficulty. Assist as needed Lochia minimal. Continue to monitor for appropriate lochia. Continue routine care Rinaldi catheter to be removed this morning. Monitor urinary voids throughout the day Patient with acute blood loss anemia with hemoglobin of 6.4. Discussed blood transfusion with patient and she is agreeable to this plan. Consents were signed and plan for transfusion with 1 unit of PRBCs and will check CBC at approximately 1800. Patient with Rh- status and fetus with Rh+ blood type. She has received RhoGAM. Patient with history of epilepsy well controlled on Keppra 1000 mg twice a day. Continue this medication throughout her hospitalization. Anticipate discharge home today or tomorrow Juan C Soto MD 8:39 AM 10/12/2017
[2017-10-12] MEDS: LEVETIRACETAM 1000 MG PO SCH ×2 (15:36→21:23)
[2017-10-13] MEDS: Ibuprofen 600 MG Tab PO PRN (05:26)
--- NOTE | 2017-10-13 08:33 | PCM.SN ---
- Free Text/Narrative Note: Post Progress Note PPD # 2 Subjective: Doing well overall. Ambulating without difficulty. Lochia minimal. Voiding without difficulty. Tolerating regular diet without nausea or vomiting. Pain controlled with oral medications. Breast feeding with minimal difficulty. Denies any lightheadedness, dizziness or shortness of breath with ambulation. Denies any headache at this time. Objective: Vitals: Vital Signs - 24 hr 10/12/17 10/12/17 10/12/17 10:13 10:28 10:29 Temperature 36.9 C 36.9 C Temperature [ Temporal] Pulse, 87 86 Peripheral Pulse, 84 Peripheral [ Pulse Oximetry] Respiratory 20 18 Rate Blood Pressure 98/58 L 98/51 L Blood Pressure 98/51 L [Right Arm] O2 Sat by Pulse 97 96 Oximetry 10/12/17 10/12/17 10/12/17 10:31 10:32 11:01 Temperature 36.8 C Temperature [ Temporal] Pulse, 90 92 Peripheral Pulse, 97 Peripheral [ Pulse Oximetry] Respiratory 20 Rate Blood Pressure 97/59 L 95/48 L Blood Pressure 95/48 L [Right Arm] O2 Sat by Pulse 97 98 96 Oximetry 10/12/17 10/12/17 10/12/17 11:31 12:00 12:32 Temperature Temperature [ 35.9 C Temporal] Pulse, 100 83 Peripheral Pulse, 88 Peripheral [ Pulse Oximetry] Respiratory Rate Blood Pressure 108/59 L 119/73 Blood Pressure [Right Arm] O2 Sat by Pulse 98 100 100 Oximetry 10/12/17 10/12/17 10/13/17 12:33 19:33 04:33 Temperature 36.5 C 36.9 C 36.7 C Temperature [ Temporal] Pulse, 88 85 Peripheral Pulse, 86 Peripheral [ Pulse Oximetry] Respiratory 18 16 16 Rate Blood Pressure 119/84 108/63 Blood Pressure 119/73 [Right Arm] O2 Sat by Pulse 98 96 Oximetry Physical Exam General: Alert and oriented, no acute distress Lungs: Clear to auscultation bilaterally Heart: Regular rate and rhythm Abdomen: Soft, minimal appropriate tenderness, non-distended, fundus midline, nontender, and below the umbilicus Extremities: 1+ edema bilateral lower extremities Laboratory Tests 10/11/17 10/12/17 10/12/17 Range/Units 17:32 06:16 18:04 WBC 9.05 8.12 (3.98-10.04) K/mm3 RBC 2.21 L 2.80 L (3.98-5.22) M/mm3 Hgb 6.4 L* 8.4 L (11.2-15.7) gm/L Hct 20.2 L 25.5 L (34.1-44.9) % MCV 91.4 91.1 (79.4-94.8) fl MCH 29.0 30.0 (25.6-32.2) pg MCHC 31.7 L 32.9 (32.2-35.5) g/dl RDW Std Deviation 46.7 H 49.3 H (36.4-46.3) fL Plt Count 200 223 (182-369) K/mm3 MPV 9.3 L 9.4 (9.4-12.3) fl Neut % (Auto) 75.2 H 70.5 (34.0-71.1) % Lymph % (Auto) 16.0 L 19.1 L (19.3-51.7) % [place] % (Auto) 6.9 7.6 (4.7-12.5) % Eos % (Auto) 1.7 2.2 (0.7-5.8) Baso % (Auto) 0.1 0.2 (0.1-1.2) % Neut # (Auto) 6.81 H 5.72 (1.56-6.13) K/mm3 Lymph # (Auto) 1.45 1.55 (1.18-3.74) K/mm3 [place] # (Auto) 0.62 H 0.62 H (0.24-0.36) K/mm3 Eos # (Auto) 0.15 0.18 (0.04-0.36) K/mm3 Baso # (Auto) 0.01 0.02 (0.01-0.08) K/mm3 Manual Slide Review Abnormal smear Blood Type B NEGATIVE Gel Antibody Screen Positive Screen 1 ros/5 flds - neg RhIG Candidate? Yes Rhogam Indicated Yes, baby rh pos H Crossmatch See Detail 10/13/17 Range/Units 06:08 WBC 6.35 (3.98-10.04) K/mm3 RBC 2.55 L (3.98-5.22) M/mm3 Hgb 7.7 L (11.2-15.7) gm/L Hct 23.2 L (34.1-44.9) % MCV 91.0 (79.4-94.8) fl MCH 30.2 (25.6-32.2) pg MCHC 33.2 (32.2-35.5) g/dl RDW Std Deviation 49.6 H (36.4-46.3) fL Plt Count 201 (182-369) K/mm3 MPV 9.3 L (9.4-12.3) fl Neut % (Auto) 65.8 (34.0-71.1) % Lymph % (Auto) 21.3 (19.3-51.7) % [place] % (Auto) 8.7 (4.7-12.5) % Eos % (Auto) 3.6 (0.7-5.8) Baso % (Auto) 0.3 (0.1-1.2) % Neut # (Auto) 4.18 (1.56-6.13) K/mm3 Lymph # (Auto) 1.35 (1.18-3.74) K/mm3 [place] # (Auto) 0.55 H (0.24-0.36) K/mm3 Eos # (Auto) 0.23 (0.04-0.36) K/mm3 Baso # (Auto) 0.02 (0.01-0.08) K/mm3 Manual Slide Review Abnormal smear Blood Type Gel Antibody Screen Screen RhIG Candidate? Rhogam Indicated Crossmatch ASSESSMENT: 32-year-old female G for P 4004 s/p normal vaginal delivery complicated by hemorrhage and received 1 unit of PRBCs PPD #2, complicated by gestational hypertension, Rh- status, and history of epilepsy. PLAN: Doing well Breast feeding with minimal difficulty. Assist as needed Lochia minimal. Continue to monitor for appropriate lochia. Continue routine care Anticipate discharge home today Continue taking vitamins. Add iron supplementation Continue Keppra 1000 mg twice daily Mom is Rh-, baby is Rh+, status post RhoGAM injection Marky Lou, MS III I have seen and evaluated patient with the above student. I agree with the note. Juan C Soto MD 8:31 AM October 13, 2017
[2017-10-13] MEDS: Prenatal Multivitamin with Calcium/Folic Acid/Iron Tab PO SCH (08:36)
[2017-10-13] MEDS: LEVETIRACETAM 1000 MG PO SCH (08:36)
--- NOTE | 2017-10-13 09:04 | PCM.DCSUM1 ---
Discharge Summary - Hospital Course Free Text/Narrative:: Stage I: Erin Armstrong was admitted for induction of labor in the setting of gestational hypertension. On admission her cervix was dilated to 1 cm. She was GBS negative. She was given 3 doses of 25 mcg of Cytotec initially and then transitioned to Pitocin for augmentation. She was given an epidural for anesthesia. On induction day #2 she had minimal progress on Pitocin and this was stopped. She had a Rinaldi bulb placed with 60 mL of fluid in the balloon was placed on traction. She was restarted on Cytotec 25 mcg once vaginally. On next check the cervix was dilated to 5 cm and the Rinaldi bulb was able to be removed intact. She was started on Pitocin for continued augmentation. She was continued on Pitocin throughout the night and had little progress in the morning and had artificial rupture membranes with minimal amount of clear fluid. After rupture of membranes she progressed from 6 cm to complete over the next 2.5 hours. She began pushing. Stage II: On 10/11/2017 she had a normal vaginal delivery of a live male at 1131. Apgars of 8 & 9. Weight and length unknown at time of dictation. There was a single nuchal cord that was not reduced prior to delivery. Infant was delivered in GERMÁN position. The cord was doubly clamped and cut by father of . was placed on mother's abdomen. Stage III: She had a spontaneous delivery of an intact placenta in Evaristo presentation. Three vessel cord. Of note there was an accessory lobe that was delivered with the placenta. This was known from ultrasounds. She was given pitocin and fundal massage. She had a small first-degree laceration in the vaginal mucosa that was hemostatic and not repaired. Patient had uterine atony and was given 600 mcg of Cytotec rectally. She continued to have uterine atony and was given Hemabate 250 mcg IM 1. She had good uterine tone after administration of Hemabate. Mom and baby were stable to recovery. EBL of 400 mL. HPI Initial Comments: Stage I: Erin Armstrong was admitted for induction of labor in the setting of gestational hypertension. On admission her cervix was dilated to 1 cm. She was GBS negative. She was given 3 doses of 25 mcg of Cytotec initially and then transitioned to Pitocin for augmentation. She was given an epidural for anesthesia. On induction day #2 she had minimal progress on Pitocin and this was stopped. She had a Rinaldi bulb placed with 60 mL of fluid in the balloon was placed on traction. She was restarted on Cytotec 25 mcg once vaginally. On next check the cervix was dilated to 5 cm and the Rinaldi bulb was able to be removed intact. She was started on Pitocin for continued augmentation. She was continued on Pitocin throughout the night and had little progress in the morning and had artificial rupture membranes with minimal amount of clear fluid. After rupture of membranes she progressed from 6 cm to complete over the next 2.5 hours. She began pushing. Stage II: On 10/11/2017 she had a normal vaginal delivery of a live male infant at 1131. Apgars of 8 & 9. Weight and length unknown at time of dictation. There was a single nuchal cord that was not reduced prior to delivery. Infant was delivered in GERMÁN position. The cord was doubly clamped and cut by father of infant. was placed on mother's abdomen. Stage III: She had a spontaneous delivery of an intact placenta in Evaristo presentation. Three vessel cord. Of note there was an accessory lobe that was delivered with the placenta. This was known from ultrasounds. She was given pitocin and fundal massage. She had a small first-degree laceration in the vaginal mucosa that was hemostatic and not repaired. Patient had uterine atony and was given 600 mcg of Cytotec rectally. She continued to have uterine atony and was given Hemabate 250 mcg IM 1. She had good uterine tone after administration of Hemabate. Mom and baby were stable to recovery. EBL of 400 mL. Brief History: Stage I: Erin Armstrong was admitted for induction of labor in the setting of gestational hypertension. On admission her cervix was dilated to 1 cm. She was GBS negative. She was given 3 doses of 25 mcg of Cytotec initially and then transitioned to Pitocin for augmentation. She was given an epidural for anesthesia. On induction day #2 she had minimal progress on Pitocin and this was stopped. She had a Rinaldi bulb placed with 60 mL of fluid in the balloon was placed on traction. She was restarted on Cytotec 25 mcg once vaginally. On next check the cervix was dilated to 5 cm and the Rinaldi bulb was able to be removed intact. She was started on Pitocin for continued augmentation. She was continued on Pitocin throughout the night and had little progress in the morning and had artificial rupture membranes with minimal amount of clear fluid. After rupture of membranes she progressed from 6 cm to complete over the next 2.5 hours. She began pushing. Stage II: On 10/11/2017 she had a normal vaginal delivery of a live male at 1131. Apgars of 8 & 9. Weight and length unknown at time of dictation. There was a single nuchal cord that was not reduced prior to delivery. Infant was delivered in GERMÁN position. The cord was doubly clamped and cut by father of . was placed on mother's abdomen. Stage III: She had a spontaneous delivery of an intact placenta in Evaristo presentation. Three vessel cord. Of note there was an accessory lobe that was delivered with the placenta. This was known from ultrasounds. She was given pitocin and fundal massage. She had a small first-degree laceration in the vaginal mucosa that was hemostatic and not repaired. Patient had uterine atony and was given 600 mcg of Cytotec rectally. She continued to have uterine atony and was given Hemabate 250 mcg IM 1. She had good uterine tone after administration of Hemabate. Mom and baby were stable to recovery. EBL of 400 mL. - Discharge Data Discharge Date: 10/13/17 Discharge Disposition: Home, Self-Care 01 Condition: Good - Discharge Diagnosis/Problem(s) (1) 38 weeks gestation of SNOMED Code(s): 75273415 ICD Code: Z3A.38 - 38 WEEKS GESTATION OF Status: Acute Current Visit: Yes (2) Gestational hypertension SNOMED Code(s): 76889324 ICD Code: O13.9 - GESTATIONAL HTN W/O SIGNIFICANT PROTEINURIA, UNSP TRIMESTER Status: Acute Current Visit: Yes (3) Rh negative state in antepartum period SNOMED Code(s): 853508300 ICD Code: O09.899 - SUPERVISION OF OTHER HIGH RISK PREGNANCIES, UNSP TRIMESTER; Z67.91 - UNSPECIFIED BLOOD TYPE, RH NEGATIVE Status: Acute Current Visit: Yes (4) Epilepsy SNOMED Code(s): 01332666 ICD Code: G40.909 - EPILEPSY, UNSP, NOT INTRACTABLE, WITHOUT STATUS EPILEPTICUS Status: Acute Current Visit: Yes (5) Abnormal glucose affecting SNOMED Code(s): 022609927, 272103845 ICD Code: O99.810 - ABNORMAL GLUCOSE COMPLICATING Status: Acute Current Visit: Yes (6) (normal spontaneous vaginal delivery) SNOMED Code(s): 35278427 ICD Code: O80 - ENCOUNTER FOR FULL-TERM UNCOMPLICATED DELIVERY Status: Acute Current Visit: Yes (7) First degree laceration of perineum, delivered, current hospitalization SNOMED Code(s): 135087975 ICD Code: O70.0 - FIRST DEGREE PERINEAL LACERATION DURING DELIVERY Status: Acute Current Visit: Yes (8) hemorrhage SNOMED Code(s): 13172278 ICD Code: O72.1 - OTHER IMMEDIATE HEMORRHAGE Status: Acute Current Visit: Yes - Patient Summary/Data Complications: Gestational hypertension, acute blood loss anemia requiring 1 unit blood transfusion of PRBCs Consults: None Hospital Course: Erin Armstrong was admitted for induction of labor in the setting of gestational hypertension. On admission her cervix was dilated to 1 cm. She was GBS negative. She was started on Cytotec and received 3 doses of 25 mcg of Cytotec. She was then started on pitocin for augmentation. [She was given an epidural for anesthesia.] She had minimal progress on Pitocin and this was stopped. A Rinaldi bulb was placed and she was started on Cytotec 25 mcg vaginally. She had artificial rupture of membranes with minimal amount of clear fluid. She progressed to complete and began pushing. On 10/11/2017 she had a normal vaginal delivery of a [live] male at 1131. Apgars of 8 and 9. Weight of 3350 g (7 pounds 6.2 ounces). Her course was complicated by delayed hemorrhage and urinary retention. On initial exam approximately 3 hours after delivery she had approximately 100-150 mL of clot within the vagina and the nurse had noted that she had continued vaginal bleeding. She had minimal vaginal bleeding after removal of the clots. She continued to have mild pain in the lower abdomen and a Rinaldi catheter was placed that resolved her pain. Her pain was well controlled and she had minimal lochia. She was ambulating, tolerating a regular diet and voiding normally. She was breast feeding. In the morning of day #1 her hemoglobin was 6.4 and it was felt that she should receive a blood transfusion. The patient was counseled on the risks and benefits of the transfusion and consents were signed. She was given 1 unit PRBCs blood transfusion. She was afebrile and her hemoglobin was 7.7 on day #2. She denies any lightheadedness or dizziness with ambulation after the blood transfusion. She desired to be discharged home on the morning of PPD #2. Her blood type is B-. Infant had Rh+ blood type and she was given RhoGAM prior to discharge. - Patient Instructions Diet: Regular Diet as Tolerated Activity: As Tolerated Driving: May Drive Today Showering/Bathing: May Shower Notify Provider of: Fever, Increased Pain, Swelling and Redness, Drainage, Nausea and/or Vomiting Other/Special Instructions: Contact physician's office if you have heavy vaginal bleeding enough to soak a pad in less than an hour for several hours. - Discharge Plan Prescriptions/Med Rec: Ferrous Sulfate 325 mg PO TID #90 tablet Home Medications: Home Meds levETIRAcetam [Levetiracetam] 1 tab PO BID 10/09/17 [History] Acetaminophen [Tylenol] 650 mg PO Q6H PRN tablet 10/12/17 [Rx] Benzocaine/Menthol [Dermoplast Pain Relief [place]] 1 spray TOP ASDIRECTED PRN canister 10/12/17 [Rx] Hydrocortisone Acetate [Anucort-HC] 25 mg RECTAL BID PRN supp 10/12/17 [Rx] Ibuprofen [IJD: Ibuprofen] 600 mg PO Q6H PRN tablet 10/12/17 [Rx] Lanolin [Lansinoh HPA] 1 applic TOP ASDIRECTED PRN tube 10/12/17 [Rx] Vit with Ca/FA/Iron [ Plus Iron] 1 each PO DAILY tablet [Rx] Ferrous Sulfate 325 mg PO TID #90 tablet 10/13/17 [Rx] Patient Handouts: Hemorrhage, Home Care Instructions for Mom, Vaginal Delivery, Care After, Care of a Perineal Tear Referrals: Zack Mackenzie MD [Primary Care Provider] - (Follow-up in 2 weeks or earlier as needed for routine visit.) - Discharge Summary/Plan Comment DC Time >30 min.: No - Patient Data Vitals - Most Recent: Last Vital Signs Temp 36.7 C 10/13/17 04:33 Pulse 85 10/13/17 04:33 Resp 16 10/13/17 04:33 BP 108/63 10/13/17 04:33 Pulse Ox 96 10/13/17 04:33 Weight - Most Recent: 79.923 kg I&O - Last 24 hours: Intake & Output 10/12/17 10/13/17 10/13/17 22:59 06:59 14:59 Intake Total 120 Balance 120 Lab Results - Last 24 hrs: Laboratory Results - last 24 hr 10/11/17 10/12/17 10/13/17 Range/Units 17:32 18:04 06:08 WBC 8.12 6.35 (3.98-10.04) K/mm3 RBC 2.80 L 2.55 L (3.98-5.22) M/mm3 Hgb 8.4 L 7.7 L (11.2-15.7) gm/L Hct 25.5 L 23.2 L (34.1-44.9) % MCV 91.1 91.0 (79.4-94.8) fl MCH 30.0 30.2 (25.6-32.2) pg MCHC 32.9 33.2 (32.2-35.5) g/dl RDW Std Deviation 49.3 H 49.6 H (36.4-46.3) fL Plt Count 223 201 (182-369) K/mm3 MPV 9.4 9.3 L (9.4-12.3) fl Neut % (Auto) 70.5 65.8 (34.0-71.1) % Lymph % (Auto) 19.1 L 21.3 (19.3-51.7) % Williams % (Auto) 7.6 8.7 (4.7-12.5) % Eos % (Auto) 2.2 3.6 (0.7-5.8) Baso % (Auto) 0.2 0.3 (0.1-1.2) % Neut # (Auto) 5.72 4.18 (1.56-6.13) K/mm3 Lymph # (Auto) 1.55 1.35 (1.18-3.74) K/mm3 Williams # (Auto) 0.62 H 0.55 H (0.24-0.36) K/mm3 Eos # (Auto) 0.18 0.23 (0.04-0.36) K/mm3 Baso # (Auto) 0.02 0.02 (0.01-0.08) K/mm3 Manual Slide Review Abnormal smear Blood Type B NEGATIVE Gel Antibody Screen Positive Screen 1 ros/5 flds - neg RhIG Candidate? Yes Rhogam Indicated Yes, baby rh pos H Crossmatch See Detail Med Orders - Current: Current Medications Acetaminophen (Tylenol) 650 mg PO Q6H PRN PRN Reason: mild pain or fever Last Admin: 10/12/17 03:24 Dose: 650 mg Benzocaine/Menthol (Dermoplast Pain Relief [place]) 0 gm TOP ASDIRECTED PRN PRN Reason: Perineal Comfort Measure Last Admin: 10/11/17 15:49 Dose: 1 canister Carboprost Tromethamine (Hemabate Ds) 250 mcg IM ASDIRECTED PRN PRN Reason: Excessive vaginal bleeding Last Admin: 10/11/17 12:22 Dose: 250 mcg Emollient Ointment (Lansinoh Hpa) 0 gm TOP ASDIRECTED PRN PRN Reason: Sore Nipples Hydrocortisone Acetate (Anucort-Hc) 25 mg RECTAL BID PRN PRN Reason: Hemorrhoid pain Oxytocin/Lactated Ringer's (Pitocin In Lr 10 Units/1,000 Ml) 10 unit in 1,000 mls @ 100 mls/hr IV TITRATE JUAN PABLO; Protocol Sodium Chloride (Normal Saline) 1,000 mls @ 500 mls/hr IV .BOLUS JUAN PABLO Ibuprofen (Motrin) 600 mg PO Q6H PRN PRN Reason: Mild pain or fever Last Admin: 10/13/17 05:26 Dose: 600 mg Levetiracetam 1000mg (TabOwn Med) 0 each PO BID JUAN PABLO Last Admin: 10/13/17 08:36 Dose: Not Given Prenat Multivit/[place]/Iron/Folic Ac ( Plus Iron) 1 each PO DAILY JUAN PABLO Last Admin: 10/13/17 08:36 Dose: 1 each Sodium Chloride (Saline Flush) 10 ml FLUSH ASDIRECTED PRN PRN Reason: Keep Vein Open Witch Ashley (Tucks) 1 pad TOP ASDIRECTED PRN PRN Reason: Hemorrhoid pain Last Admin: 10/11/17 15:50 Dose: 1 tub Discontinued Medications Acetaminophen (Tylenol) 650 mg PO Q4H PRN PRN Reason: Headache Last Admin: 10/10/17 01:57 Dose: 650 mg Acetaminophen (Tylenol) 650 mg PO Q6H PRN PRN Reason: Pain (Mild 1-3) and fever Last Admin: 10/10/17 09:23 Dose: 650 mg Acetaminophen (Tylenol) 650 mg PO NOW ONE Stop: 10/12/17 08:26 Last Admin: 10/12/17 09:36 Dose: 650 mg Acetaminophen/Butalbital/Caffeine (Fioricet 325-50-40 Mg) 2 tab PO Q6H PRN PRN Reason: Headache Last Admin: 10/10/17 15:09 Dose: 2 tab Carboprost Tromethamine (Hemabate Ds) Confirm Administered Dose 250 mcg .ROUTE .STK-MED ONE Stop: 10/11/17 11:45 Last Admin: 10/12/17 07:43 Dose: Not Given Diphenhydramine HCl (Benadryl) 25 mg IV ONETIME ONE Stop: 10/12/17 08:26 Last Admin: 10/12/17 21:23 Dose: Not Given Diphenoxylate HCl/Atropine (Lomotil 0.025-2.5 Mg) 1 tab PO ONETIME ONE Stop: 10/11/17 12:03 Last Admin: 10/11/17 12:20 Dose: 1 tab Ephedrine Sulfate (Ephedrine Sulfate) 5 mg IVPUSH ASDIRECTED PRN PRN Reason: Hypotension Fentanyl (Sublimaze) 100 mcg EPIDUR Q3H PRN PRN Reason: Pain Last Admin: 10/11/17 10:21 Dose: 100 mcg Fentanyl/Bupivacaine HCl (Fentanyl/Bupivacaine/Ns 2 Mcg-0.125% 100 Ml) 100 ml EPIDUR ASDIRECTED [facility] Last Admin: 10/11/17 09:39 Dose: 100 ml Hydromorphone HCl (Dilaudid) 0.5 mg IVPUSH ONETIME ONE Stop: 10/11/17 14:47 Last Admin: 10/11/17 14:57 Dose: 0.5 mg Lactated Ringer's (Ringers, Lactated) 1,000 mls @ 100 mls/hr IV ASDIRECTED [facility] Last Admin: 04/06/18 10:59 Dose: 250 mls/hr Oxytocin/Lactated Ringer's (Pitocin In Lr 10 Units/1,000 Ml) 10 unit in 1,000 mls @ 100 mls/hr IV ASDIRECTED JUAN PABLO Lactated Ringer's (Ringers, Lactated) 1,000 mls @ 40 mls/hr IV ASDIRECTED JUAN PABLO Oxytocin/Lactated Ringer's (Pitocin In Lr 10 Units/1,000 Ml) 10 unit in 1,000 mls @ 12 mls/hr IV TITRATE JUAN PABLO; Protocol Last Titration: 10/11/17 07:22 Dose: 20 munits/min, 120 mls/hr Oxytocin/Lactated Ringer's (Pitocin In Lr 10 Units/1,000 Ml) 10 unit in 1,000 mls @ 12 mls/hr IV TITRATE JUAN PABLO; Protocol Oxytocin/Lactated Ringer's (Pitocin In Lr 10 Units/1,000 Ml) 10 unit in 1,000 mls @ 12 mls/hr IV TITRATE JUAN PABLO; Protocol Last Admin: 10/11/17 11:22 Dose: 10 munits/min, 60 mls/hr Levetiracetam (Keppra) 1,000 mg PO BID JUAN PABLO Last Admin: 10/10/17 04:31 Dose: Not Given Misoprostol (Cytotec) Confirm Administered Dose 25 mcg .ROUTE .STK-MED ONE Stop: 10/09/17 20:41 Last Admin: 10/09/17 21:16 Dose: Not Given Misoprostol (Cytotec) 25 mcg VAG Q3H JUAN PABLO Stop: 10/10/17 03:01 Last Admin: 10/10/17 04:30 Dose: Not Given Misoprostol (Cytotec) 25 mcg VAG Q3H JUAN PABLO Stop: 10/10/17 23:46 Last Admin: 10/11/17 13:04 Dose: Not Given Misoprostol (Cytotec) Confirm Administered Dose 600 mcg .ROUTE .STK-MED ONE Stop: 10/11/17 11:16 Last Admin: 10/11/17 11:41 Dose: 600 mcg Levetiracetam 1000mg (TabOwn Med) 1 each PO BID JUAN PABLO Last Admin: 10/11/17 09:04 Dose: 1 each Ondansetron HCl (Zofran) 4 mg IVPUSH Q4H PRN PRN Reason: Nausea/Vomiting Last Admin: 10/11/17 09:04 Dose: 4 mg Ondansetron HCl (Zofran) 4 mg IVPUSH ONETIME PRN PRN Reason: Nausea/Vomiting Oxycodone HCl (Oxycodone) 5 mg PO ONETIME ONE Stop: 10/09/17 21:01 Last Admin: 10/09/17 21:19 Dose: 5 mg Oxycodone HCl (Oxycodone) 5 mg PO ONETIME ONE Stop: 10/10/17 18:08 Last Admin: 10/10/17 18:27 Dose: 5 mg Sodium Chloride (Saline Flush) 10 ml FLUSH ASDIRECTED PRN PRN Reason: Keep Vein Open
== END 2017-10-13 10:28 | disposition home or self-care (01) | DRG 774 ==
LOC: JD.OBCHECK 17:31 → JD.OB 17:37 → JD.OBCHECK 21:23 → JD.OB 21:26 → OBSVTOIN 10-11 11:31 → JD.OB 10-11 11:32
PROVIDERS: ADMIT Obstetrics & Gynecology; ATTEND Obstetrics & Gynecology
PROC: 3E0P7VZ Introduction of Hormone into Female Reproductive, Via Natural or Artificial Opening (ICD-10-PCS; 2017-10-10)
PROC: 00HU33Z Insertion of Infusion Device into Spinal Canal, Percutaneous Approach (ICD-10-PCS; 2017-10-10)
PROC: 3E0R3BZ Introduction of Anesthetic Agent into Spinal Canal, Percutaneous Approach (ICD-10-PCS; 2017-10-10)
PROC: 10E0XZZ Delivery of Products of Conception, External Approach (ICD-10-PCS; principal; 2017-10-11)
PROC: 10907ZC Drainage of Amniotic Fluid, Therapeutic from Products of Conception, Via Natural or Artificial Opening (ICD-10-PCS; 2017-10-11)
PROC: 30233N1 Transfusion of Nonautologous Red Blood Cells into Peripheral Vein, Percutaneous Approach (ICD-10-PCS; 2017-10-12)
DX: O13.4 Gestational [pregnancy-induced] hypertension without significant proteinuria, complicating childbirth (principal); O72.2 Delayed and secondary postpartum hemorrhage; O99.354 Diseases of the nervous system complicating childbirth; O43.193 Other malformation of placenta, third trimester; O70.0 First degree perineal laceration during delivery; O69.81X0 Labor and delivery complicated by cord around neck, without compression, not applicable or unspecified; Z3A.38 38 weeks gestation of pregnancy; Z37.0 Single live birth; O99.89 Other specified diseases and conditions complicating pregnancy, childbirth and the puerperium; R60.9 Edema, unspecified; R33.8 Other retention of urine; O16.9 Unspecified maternal hypertension, unspecified trimester
CPT/HCPCS: 01967; 36415; 36430; 51702; 59025; 59409; 80053; 81003; 84550; 85025; 85362; 85384; 85461; 85610; 85730; 86850; 86870; 86900; 86901; 86922; A9270; A9270-GY; J1170; J2405; J2590; J2790; J3010; J7040; J7120; P9016

== ENCOUNTER 2022-07-28 11:00 | Emergency (ER) | payer OTHER ==
[2022-07-28] MEDS ORDERED: Sodium Chloride 0.9% 1,000 ML IV ONE ×2 (11:49→14:37)
[2022-07-28] MEDS ORDERED: Ondansetron 4 MG/2 ML SDV IVPUSH ONE (12:54)
[2022-07-28] MEDS ORDERED: Atropine/Diphenoxylate 0.025-2.5 MG Tab PO ONE (12:54)
== END 2022-07-28 16:20 | disposition home or self-care (01) ==
LOC: JD.ED 11:00
DX: K52.9 Noninfective gastroenteritis and colitis, unspecified (principal)
CPT/HCPCS: 36415; 80053; 81003; 81025; 83690; 85025; 96361; 96374; 99284; A9270; J2405; J7030

== ENCOUNTER 2023-07-06 15:20 | Emergency (ER) | payer OTHER ==
[2023-07-06 21:48] LABS: BASOPHILS PERCENT AUTO 0.5 % (0.0-1.0); EOSINOPHILS ABSOLUTE AUTO 0.4 K/mm3 (0.0-0.4); HEMATOCRIT 37.4 % (37.0-47.0); HEMOGLOBIN 12.9 gm/dl (12.0-16.0); IMMATURE GRAN ABSOLUTE AUTO 0.01 K/mm3 (0.00-0.05); IMMATURE GRAN PERCENT AUTO 0.1 % (0.0-0.4); LYMPHOCYTES ABSOLUTE AUTO 2.2 K/mm3 (1.0-4.8); LYMPHOCYTES PERCENT AUTO 28.7 % (24.0-44.0); MEAN CORPUSCULAR HEMOGLOBIN 29.9 pg (28.0-32.0); MEAN CORPUSCULAR HGB CONC 34.5 g/dl (32.0-36.0); MEAN CORPUSCULAR VOLUME 86.6 fl (83.0-99.0); MEAN PLATELET VOLUME 8.5 fl (9.4-12.3); MONOCYTES ABSOLUTE AUTO 0.6 K/mm3 (0.0-0.8); MONOCYTES PERCENT AUTO 7.5 % (0.0-8.0); NEUTROPHILS ABSOLUTE AUTO 4.5 K/mm3 (1.8-7.7); NEUTROPHILS PERCENT AUTO 58.2 % (41.0-71.0); PLATELET COUNT,PLT 294 K/mm3 (150-400); RED BLOOD CELL COUNT 4.32 M/mm3 (4.10-5.30); WHITE BLOOD CELL COUNT,WBC 7.74 K/mm3 (3.9-11.3)
[2023-07-06] MEDS ORDERED: Haloperidol 1 MG Tab PO ONE (22:02)
[2023-07-06] MEDS ORDERED: Cyanocobalamin (Vitamin B12) 1,000 MCG Tab PO SCH (22:15)
[2023-07-06 22:20] LABS: ALBUMIN 3.5 g/dl (3.4-5.0); ANION GAP 9.8 (5-15); BILIRUBIN TOTAL 0.2 mg/dL (0.2-1.0); BUN/CREATININE RATIO 17.1 (14-18); CALCIUM 8.8 mg/dL (8.5-10.1); CREATININE 0.7 mg/dL (0.55-1.02); EST CRCL DRUG DOSING (CG) 91.91 mL/min; POTASSIUM,K 3.8 mEq/L (3.5-5.1); PROTEIN TOTAL,TP 7.1 g/dl (6.4-8.2); TSH 2.776 uIU/mL (0.358-3.74)
== END 2023-07-06 23:03 | disposition home or self-care (01) ==
LOC: JD.ED 15:20
DX: F42.9 Obsessive-compulsive disorder, unspecified (principal); F34.1 Dysthymic disorder
CPT/HCPCS: 36415; 80053; 80307; 84443; 85025; 99284; A9270

== ENCOUNTER 2023-07-22 11:46 | Emergency (ER) | payer OTHER ==
[2023-07-22] MEDS ORDERED: Divalproex Sodium Delayed-Release 500 MG Tab.CR PO ONE (12:17)
[2023-07-22] MEDS ORDERED: Ondansetron 4 MG/2 ML SDV IVPUSH ONE (12:18)
[2023-07-22 12:30] LABS: BASOPHILS ABSOLUTE AUTO 0.1 K/mm3 (0.0-0.2); BASOPHILS PERCENT AUTO 0.6 % (0.0-1.0); EOSINOPHILS ABSOLUTE AUTO 0.4 K/mm3 (0.0-0.4); EOSINOPHILS PERCENT AUTO 4.8 % (0.0-6.0); HEMATOCRIT 37.3 % (37.0-47.0); HEMOGLOBIN 12.7 gm/dl (12.0-16.0); IMMATURE GRAN ABSOLUTE AUTO 0.02 K/mm3 (0.00-0.05); IMMATURE GRAN PERCENT AUTO 0.3 % (0.0-0.4); LYMPHOCYTES ABSOLUTE AUTO 1.7 K/mm3 (1.0-4.8); LYMPHOCYTES PERCENT AUTO 20.9 % (24.0-44.0); MEAN CORPUSCULAR HEMOGLOBIN 29.5 pg (28.0-32.0); MEAN CORPUSCULAR VOLUME 86.7 fl (83.0-99.0); MEAN PLATELET VOLUME 8.6 fl (9.4-12.3); MONOCYTES ABSOLUTE AUTO 0.4 K/mm3 (0.0-0.8); MONOCYTES PERCENT AUTO 4.8 % (0.0-8.0); NEUTROPHILS ABSOLUTE AUTO 5.5 K/mm3 (1.8-7.7); NEUTROPHILS PERCENT AUTO 68.6 % (41.0-71.0); PLATELET COUNT,PLT 371 K/mm3 (150-400); WHITE BLOOD CELL COUNT,WBC 7.98 K/mm3 (3.9-11.3)
[2023-07-22 12:51] LABS: ALBUMIN 3.7 g/dl (3.4-5.0); BILIRUBIN TOTAL 0.2 mg/dL (0.2-1.0); BUN/CREATININE RATIO 12.2 (14-18); CALCIUM 9.1 mg/dL (8.5-10.1); CREATININE 0.9 mg/dL (0.55-1.02); EST CRCL DRUG DOSING (CG) 68.35 mL/min; MAGNESIUM 1.8 mg/dL (1.8-2.4); PROTEIN TOTAL,TP 7.4 g/dl (6.4-8.2)
[2023-07-22 13:10] LABS: APPEARANCE,URINE SLT CLOUDY (Clear); BILIRUBIN,URINE NEGATIVE (Negative); COLOR,URINE DARK YELLOW (Yellow); GLUCOSE,URINE NEGATIVE (Negative); KETONES,URINE NEGATIVE (Negative); LEUKOCYTE ESTERASE,URINE NEGATIVE (Negative); NITRITE,URINE NEGATIVE (Negative); OCCULT BLOOD,URINE NEGATIVE (Negative); PROTEIN,URINE NEGATIVE (Negative); UROBILINOGEN,URINE 0.2 (0.2-1.0)
[2023-07-22] MEDS ORDERED: Sodium Chloride 0.9% 10 ML Syringe FLUSH PRN (13:21)
[2023-07-22] MEDS ORDERED: Sodium Chloride 0.9% 1,000 ML IV ONE (13:21)
[2023-07-22] MEDS ORDERED: Ketorolac 30 MG/ML SDV IVPUSH ONE (13:21)
[2023-07-22 13:27] LABS: BACTERIA,URINE FEW /hpf (FEW); MUCUS,URINE NOT SEEN /hpf (FEW); RBC,URINE 0-5 /hpf (0-5)
== END 2023-07-22 16:19 | disposition home or self-care (01) ==
LOC: JD.ED 11:46
DX: S52.592A Other fractures of lower end of left radius, initial encounter for closed fracture (principal); G40.909 Epilepsy, unspecified, not intractable, without status epilepticus; Z86.16 Personal history of COVID-19
CPT/HCPCS: 73100; 80053; 80177; 81001; 83735; 85025; 96374; 96375; 99285; A9270; J1885; J2405; J3490; J7030; 99284

== ENCOUNTER 2023-08-05 21:06 | Emergency (ER) | payer OTHER | END 2023-08-05 22:27 | disposition home or self-care (01) | LOC: JD.ED 21:06 | DX: M79.602 Pain in left arm (principal); Z79.899 Other long term (current) drug therapy | CPT/HCPCS: 73090-26-LT; 73090-LT; 99282; 99283 ==

== ENCOUNTER 2023-08-06 17:35 | Emergency (ER) | payer OTHER | END 2023-08-06 18:33 | disposition home or self-care (01) | LOC: JD.ED 17:35 | DX: Z47.89 Encounter for other orthopedic aftercare (principal); Z86.16 Personal history of COVID-19; Z79.899 Other long term (current) drug therapy | CPT/HCPCS: 99282; 99283 ==

== ENCOUNTER 2023-08-09 20:56 | Emergency (ER) | payer OTHER ==
[2023-08-09] MEDS ORDERED: Iopamidol 612 MG/ML 100 ML Bottle IVPUSH ONE (21:42)
[2023-08-09] MEDS: Dextrose 5%-0.9% NaCl 1,000 ML IV SCH (22:17)
[2023-08-09] MEDS: HYDROmorphone 0.5 MG/0.5 ML Syringe IVPUSH ONE (22:18)
[2023-08-09] MEDS: LORazepam 2 MG/ML SDV IVPUSH ONE (22:18)
[2023-08-09] MEDS: Ondansetron 4 MG Tab.DIS PO ONE (22:19)
[2023-08-09] MEDS: Sodium Chloride 0.9% 10 ML Syringe FLUSH ONE (22:20)
[2023-08-09 22:23] LABS: BASOPHILS ABSOLUTE AUTO 0.1 K/mm3 (0.0-0.2); BASOPHILS PERCENT AUTO 0.7 % (0.0-1.0); EOSINOPHILS ABSOLUTE AUTO 0.5 K/mm3 (0.0-0.4); EOSINOPHILS PERCENT AUTO 5.8 % (0.0-6.0); HEMATOCRIT 36.2 % (37.0-47.0); IMMATURE GRAN ABSOLUTE AUTO 0.02 K/mm3 (0.00-0.05); IMMATURE GRAN PERCENT AUTO 0.2 % (0.0-0.4); LYMPHOCYTES ABSOLUTE AUTO 1.9 K/mm3 (1.0-4.8); MEAN CORPUSCULAR HEMOGLOBIN 28.7 pg (28.0-32.0); MEAN CORPUSCULAR HGB CONC 33.1 g/dl (32.0-36.0); MEAN CORPUSCULAR VOLUME 86.6 fl (83.0-99.0); MEAN PLATELET VOLUME 8.5 fl (9.4-12.3); MONOCYTES ABSOLUTE AUTO 0.4 K/mm3 (0.0-0.8); MONOCYTES PERCENT AUTO 4.6 % (0.0-8.0); NEUTROPHILS ABSOLUTE AUTO 6.2 K/mm3 (1.8-7.7); NEUTROPHILS PERCENT AUTO 67.7 % (41.0-71.0); PLATELET COUNT,PLT 390 K/mm3 (150-400); RED BLOOD CELL COUNT 4.18 M/mm3 (4.10-5.30); WHITE BLOOD CELL COUNT,WBC 9.15 K/mm3 (3.9-11.3)
[2023-08-09] MEDS: levETIRAcetam 1,000 MG in Sodium Chloride 0.9% 100 ML IV ONE (22:32)
[2023-08-09] MEDS: levETIRAcetam 500 MG/5 ML SDV ONE (22:38)
[2023-08-09 22:52] LABS: A/G RATIO 1.1 (1-2); ALANINE AMINOTRANSFERASE,ALT 38 U/L (14-59); ALBUMIN 3.9 g/dl (3.4-5.0); ALKALINE PHOSPHATASE 122 U/L (46-116); ANION GAP 14.7 (5-15); ASPARTATE AMNIOTRANSFERASE,AST 13 U/L (15-37); BILIRUBIN TOTAL 0.2 mg/dL (0.2-1.0); BLOOD UREA NITROGEN,BUN 11 mg/dL (7-18); CALCIUM 9.1 mg/dL (8.5-10.1); CARBON DIOXIDE,CO2 24 mEq/L (21-32); CHLORIDE,CL 104 mEq/L (98-107); ESTIMATED GFR 75 mL/min (>60); GLUCOSE RANDOM 99 mg/dL (70-99); MAGNESIUM 1.9 mg/dL (1.8-2.4); POTASSIUM,K 3.7 mEq/L (3.5-5.1); PROTEIN TOTAL,TP 7.5 g/dl (6.4-8.2); SODIUM,NA 139 mEq/L (136-145); TSH 1.801 uIU/mL (0.358-3.74)
== END 2023-08-09 23:43 | disposition home or self-care (01) ==
LOC: JD.ED 20:56
DX: G40.909 Epilepsy, unspecified, not intractable, without status epilepticus (principal); S30.0XXA Contusion of lower back and pelvis, initial encounter; Z86.16 Personal history of COVID-19; Z79.899 Other long term (current) drug therapy; W10.8XXA Fall (on) (from) other stairs and steps, initial encounter
CPT/HCPCS: 36415; 70450; 71260; 72125; 72128; 72131; 73070; 80053; 80164; 80307; 83735; 84443; 85025; 96361; 96365; 96375; 99285; A9270; J1170; J1953; J2060; J3490; J7042; 99284

== ENCOUNTER 2023-08-10 13:35 | Emergency (ER) | payer OTHER ==
[2023-08-10] MEDS: Sodium Chloride 0.9% 10 ML Syringe FLUSH PRN (14:00)
[2023-08-10] MEDS: Sodium Chloride 0.9% 1,000 ML IV SCH (14:00)
[2023-08-10 14:30] LABS: BASOPHILS ABSOLUTE AUTO 0.1 K/mm3 (0.0-0.2); BASOPHILS PERCENT AUTO 0.9 % (0.0-1.0); EOSINOPHILS ABSOLUTE AUTO 0.4 K/mm3 (0.0-0.4); EOSINOPHILS PERCENT AUTO 7.9 % (0.0-6.0); HEMATOCRIT 35.5 % (37.0-47.0); HEMOGLOBIN 11.9 gm/dl (12.0-16.0); IMMATURE GRAN ABSOLUTE AUTO 0.02 K/mm3 (0.00-0.05); IMMATURE GRAN PERCENT AUTO 0.4 % (0.0-0.4); LYMPHOCYTES ABSOLUTE AUTO 1.8 K/mm3 (1.0-4.8); LYMPHOCYTES PERCENT AUTO 32.9 % (24.0-44.0); MEAN CORPUSCULAR HEMOGLOBIN 28.4 pg (28.0-32.0); MEAN CORPUSCULAR HGB CONC 33.5 g/dl (32.0-36.0); MEAN CORPUSCULAR VOLUME 84.7 fl (83.0-99.0); MEAN PLATELET VOLUME 8.3 fl (9.4-12.3); MONOCYTES ABSOLUTE AUTO 0.4 K/mm3 (0.0-0.8); MONOCYTES PERCENT AUTO 7.1 % (0.0-8.0); NEUTROPHILS ABSOLUTE AUTO 2.8 K/mm3 (1.8-7.7); NEUTROPHILS PERCENT AUTO 50.8 % (41.0-71.0); PLATELET COUNT,PLT 383 K/mm3 (150-400); RED BLOOD CELL COUNT 4.19 M/mm3 (4.10-5.30); WHITE BLOOD CELL COUNT,WBC 5.47 K/mm3 (3.9-11.3)
[2023-08-10] MEDS: levETIRAcetam 1,000 MG in Sodium Chloride 0.9% 100 ML IV ONE (14:43)
[2023-08-10 14:53] LABS: ALBUMIN 3.7 g/dl (3.4-5.0); ANION GAP 14.7 (5-15); BILIRUBIN TOTAL 0.5 mg/dL (0.2-1.0); BUN/CREATININE RATIO 11.1 (14-18); CALCIUM 9.1 mg/dL (8.5-10.1); CREATININE 0.9 mg/dL (0.55-1.02); EST CRCL DRUG DOSING (CG) 68.35 mL/min; MAGNESIUM 1.8 mg/dL (1.8-2.4); POTASSIUM,K 3.7 mEq/L (3.5-5.1); PROTEIN TOTAL,TP 7.3 g/dl (6.4-8.2)
[2023-08-10] MEDS: HYDROmorphone 0.5 MG/0.5 ML Syringe IVPUSH ONE (15:23)
[2023-08-13 20:47] LABS: KEPPRA 47 ug/mL (10-40)
== END 2023-08-10 17:30 | disposition home or self-care (01) ==
LOC: JD.ED 13:35
DX: S93.502A Unspecified sprain of left great toe, initial encounter (principal); R56.9 Unspecified convulsions; Z88.5 Allergy status to narcotic agent; Z79.899 Other long term (current) drug therapy; Z86.16 Personal history of COVID-19; W10.9XXA Fall (on) (from) unspecified stairs and steps, initial encounter
CPT/HCPCS: 36415; 70450; 72125; 73090; 73660; 80053; 80164; 80177; 83735; 85025; 93005; 93246; 96365; 96375; 99285; J1170; J1953; J3360; J3490; J7030; 93010; 99284

== ENCOUNTER 2023-10-06 11:33 | Emergency (ER) | payer OTHER ==
[2023-10-06 12:42] LABS: BASOPHILS ABSOLUTE AUTO 0.1 K/mm3 (0.0-0.2); BASOPHILS PERCENT AUTO 0.8 % (0.0-1.0); EOSINOPHILS ABSOLUTE AUTO 0.4 K/mm3 (0.0-0.4); EOSINOPHILS PERCENT AUTO 5.6 % (0.0-6.0); HEMATOCRIT 38.1 % (37.0-47.0); HEMOGLOBIN 12.7 gm/dl (12.0-16.0); IMMATURE GRAN ABSOLUTE AUTO 0.01 K/mm3 (0.00-0.05); IMMATURE GRAN PERCENT AUTO 0.2 % (0.0-0.4); LYMPHOCYTES ABSOLUTE AUTO 2.2 K/mm3 (1.0-4.8); LYMPHOCYTES PERCENT AUTO 33.8 % (24.0-44.0); MEAN CORPUSCULAR HEMOGLOBIN 27.1 pg (28.0-32.0); MEAN CORPUSCULAR HGB CONC 33.3 g/dl (32.0-36.0); MEAN CORPUSCULAR VOLUME 81.2 fl (83.0-99.0); MEAN PLATELET VOLUME 9.2 fl (9.4-12.3); MONOCYTES ABSOLUTE AUTO 0.5 K/mm3 (0.0-0.8); MONOCYTES PERCENT AUTO 7.4 % (0.0-8.0); NEUTROPHILS ABSOLUTE AUTO 3.5 K/mm3 (1.8-7.7); NEUTROPHILS PERCENT AUTO 52.2 % (41.0-71.0); PLATELET COUNT,PLT 363 K/mm3 (150-400); RED BLOOD CELL COUNT 4.69 M/mm3 (4.10-5.30)
[2023-10-06] MEDS: HYDROmorphone 0.5 MG/0.5 ML Syringe IVPUSH ONE ×3 (12:49→14:20)
[2023-10-06] MEDS: Sodium Chloride 0.9% 1,000 ML IV STA (12:49)
[2023-10-06] MEDS: Sodium Chloride 0.9% 10 ML Syringe FLUSH PRN (12:49)
[2023-10-06] MEDS: Famotidine 20 MG/2 ML SDV IVPUSH ONE (12:49)
[2023-10-06] MEDS: Ondansetron 4 MG/2 ML SDV IVPUSH ONE (12:49)
[2023-10-06] MEDS: Alum Hydrox/Mag Hydrox/Simeth 30 ML, Lidocaine 2% 15 ML PO ONE (12:50)
[2023-10-06 12:52] LABS: ALBUMIN 4.1 g/dl (3.4-5.0); ANION GAP 18.8 (5-15); BILIRUBIN TOTAL 0.2 mg/dL (0.2-1.0); BUN/CREATININE RATIO 17.5 (14-18); C-REACTIVE PROTEIN 0.84 mg/dL (<0.30); CALCIUM 8.8 mg/dL (8.5-10.1); CREATININE 0.8 mg/dL (0.55-1.02); EST CRCL DRUG DOSING (CG) 76.15 mL/min; POTASSIUM,K 3.8 mEq/L (3.5-5.1); PROTEIN TOTAL,TP 8.1 g/dl (6.4-8.2)
[2023-10-06 13:23] LABS: APPEARANCE,URINE CLEAR (Clear); BILIRUBIN,URINE NEGATIVE (Negative); COLOR,URINE LIGHT YELLOW (Yellow); GLUCOSE,URINE NEGATIVE (Negative); KETONES,URINE NEGATIVE (Negative); LEUKOCYTE ESTERASE,URINE NEGATIVE (Negative); NITRITE,URINE NEGATIVE (Negative); OCCULT BLOOD,URINE NEGATIVE (Negative); PH,URINE 6.5 (5.0-8.0); PROTEIN,URINE NEGATIVE (Negative); UROBILINOGEN,URINE 0.2 (0.2-1.0)
[2023-10-06] MEDS: Sucralfate Suspension 1 GM/10 ML Cup PO ONE ×2 (13:32→14:20)
[2023-10-06 13:33] LABS: BACTERIA,URINE NOT SEEN /hpf (FEW); MUCUS,URINE NOT SEEN /hpf (FEW); RBC,URINE NOT SEEN /hpf (0-5); SQUAMOUS EPITHELIAL CELLS,UR 0-5 /hpf (0-5); WBC,URINE NOT SEEN /hpf (0-5)
== END 2023-10-06 14:25 | disposition home or self-care (01) ==
LOC: JD.ED 11:33
DX: K21.9 Gastro-esophageal reflux disease without esophagitis (principal); E66.9 Obesity, unspecified; Z88.5 Allergy status to narcotic agent; Z88.6 Allergy status to analgesic agent; Z79.899 Other long term (current) drug therapy; Z86.16 Personal history of COVID-19; Z68.35 Body mass index [BMI] 35.0-35.9, adult
CPT/HCPCS: 36415; 80053; 81001; 83690; 85025; 86140; 96361; 96374; 96375; 96376; 99283; 99284-25; A9270-GY; J1170; J2405; J3490; J7030

== ENCOUNTER 2023-10-07 13:16 | Emergency (ER) | payer OTHER ==
[2023-10-07 15:06] LABS: BASOPHILS ABSOLUTE AUTO 0.1 K/mm3 (0.0-0.2); BASOPHILS PERCENT AUTO 1.2 % (0.0-1.0); EOSINOPHILS ABSOLUTE AUTO 0.5 K/mm3 (0.0-0.4); EOSINOPHILS PERCENT AUTO 11.3 % (0.0-6.0); HEMATOCRIT 35.3 % (37.0-47.0); HEMOGLOBIN 11.7 gm/dl (12.0-16.0); IMMATURE GRAN ABSOLUTE AUTO 0.01 K/mm3 (0.00-0.05); IMMATURE GRAN PERCENT AUTO 0.2 % (0.0-0.4); LYMPHOCYTES ABSOLUTE AUTO 1.9 K/mm3 (1.0-4.8); LYMPHOCYTES PERCENT AUTO 44.2 % (24.0-44.0); MEAN CORPUSCULAR HEMOGLOBIN 27.6 pg (28.0-32.0); MEAN CORPUSCULAR HGB CONC 33.1 g/dl (32.0-36.0); MEAN CORPUSCULAR VOLUME 83.3 fl (83.0-99.0); MEAN PLATELET VOLUME 8.9 fl (9.4-12.3); MONOCYTES ABSOLUTE AUTO 0.3 K/mm3 (0.0-0.8); MONOCYTES PERCENT AUTO 6.7 % (0.0-8.0); NEUTROPHILS ABSOLUTE AUTO 1.6 K/mm3 (1.8-7.7); NEUTROPHILS PERCENT AUTO 36.4 % (41.0-71.0); PLATELET COUNT,PLT 305 K/mm3 (150-400); RED BLOOD CELL COUNT 4.24 M/mm3 (4.10-5.30); WHITE BLOOD CELL COUNT,WBC 4.32 K/mm3 (3.9-11.3)
[2023-10-07 15:12] LABS: APPEARANCE,URINE CLEAR (Clear); BILIRUBIN,URINE NEGATIVE (Negative); COLOR,URINE LIGHT YELLOW (Yellow); GLUCOSE,URINE NEGATIVE (Negative); KETONES,URINE NEGATIVE (Negative); LEUKOCYTE ESTERASE,URINE NEGATIVE (Negative); NITRITE,URINE NEGATIVE (Negative); OCCULT BLOOD,URINE NEGATIVE (Negative); PROTEIN,URINE NEGATIVE (Negative); UROBILINOGEN,URINE 0.2 (0.2-1.0)
[2023-10-07 15:30] LABS: A/G RATIO 1.1 (1-2); ALBUMIN 3.7 g/dl (3.4-5.0); ANION GAP 14.6 (5-15); BILIRUBIN TOTAL 0.1 mg/dL (0.2-1.0); C-REACTIVE PROTEIN 0.63 mg/dL (<0.30); CALCIUM 8.5 mg/dL (8.5-10.1); CREATININE 0.8 mg/dL (0.55-1.02); EST CRCL DRUG DOSING (CG) 76.15 mL/min; MAGNESIUM 1.9 mg/dL (1.8-2.4); POTASSIUM,K 3.6 mEq/L (3.5-5.1); PROTEIN TOTAL,TP 7.2 g/dl (6.4-8.2)
[2023-10-07] MEDS: Iopamidol 612 MG/ML 100 ML Bottle IVPUSH ONE (16:16)
[2023-10-07] MEDS: Sodium Chloride 0.9% 10 ML Syringe FLUSH ONE (16:16)
[2023-10-07] MEDS: Alum Hydrox/Mag Hydrox/Simeth 30 ML, Lidocaine 2% 15 ML PO ONE (16:32)
[2023-10-07] MEDS: Hyoscyamine 0.125 MG Tab.SL SL ONE ×2 (17:25→17:40)
== END 2023-10-07 17:55 | disposition home or self-care (01) ==
LOC: JD.ED 13:16
DX: K44.9 Diaphragmatic hernia without obstruction or gangrene (principal); K21.9 Gastro-esophageal reflux disease without esophagitis; Z88.5 Allergy status to narcotic agent; E66.9 Obesity, unspecified; Z86.16 Personal history of COVID-19; Z68.34 Body mass index [BMI] 34.0-34.9, adult; Z79.899 Other long term (current) drug therapy
CPT/HCPCS: 36415; 74177; 80053; 81003; 83605; 83690; 83735; 84703; 85025; 86140; 99284; A9270; J3490; Q9967

== ENCOUNTER 2023-10-10 14:47 | Emergency (ER) | payer OTHER ==
[2023-10-10] MEDS ORDERED: Naloxone 0.4 MG/ML SDV IVPUSH PRN ×2 (15:30→17:12)
[2023-10-10] MEDS: HYDROmorphone 0.5 MG/0.5 ML Syringe IVPUSH ONE ×2 (15:38→17:34)
[2023-10-10] MEDS: Lactated Ringers 1,000 ML IV SCH (15:39)
[2023-10-10] MEDS: Famotidine 20 MG/2 ML SDV IVPUSH ONE (15:39)
[2023-10-10] MEDS: Sodium Chloride 0.9% 10 ML Syringe FLUSH PRN (15:39)
[2023-10-10 15:47] LABS: BASOPHILS PERCENT AUTO 0.5 % (0.0-1.0); EOSINOPHILS ABSOLUTE AUTO 0.5 K/mm3 (0.0-0.4); EOSINOPHILS PERCENT AUTO 5.5 % (0.0-6.0); HEMATOCRIT 43.3 % (37.0-47.0); HEMOGLOBIN 14.3 gm/dl (12.0-16.0); IMMATURE GRAN ABSOLUTE AUTO 0.02 K/mm3 (0.00-0.05); IMMATURE GRAN PERCENT AUTO 0.2 % (0.0-0.4); LYMPHOCYTES ABSOLUTE AUTO 2.2 K/mm3 (1.0-4.8); LYMPHOCYTES PERCENT AUTO 26.6 % (24.0-44.0); MEAN CORPUSCULAR VOLUME 81.7 fl (83.0-99.0); MEAN PLATELET VOLUME 9.1 fl (9.4-12.3); MONOCYTES ABSOLUTE AUTO 0.6 K/mm3 (0.0-0.8); MONOCYTES PERCENT AUTO 6.9 % (0.0-8.0); NEUTROPHILS ABSOLUTE AUTO 4.9 K/mm3 (1.8-7.7); NEUTROPHILS PERCENT AUTO 60.3 % (41.0-71.0); PLATELET COUNT,PLT 411 K/mm3 (150-400); WHITE BLOOD CELL COUNT,WBC 8.12 K/mm3 (3.9-11.3)
[2023-10-10 15:48] LABS: APPEARANCE,URINE CLEAR (Clear); BILIRUBIN,URINE NEGATIVE (Negative); COLOR,URINE YELLOW (Yellow); GLUCOSE,URINE NEGATIVE (Negative); KETONES,URINE NEGATIVE (Negative); LEUKOCYTE ESTERASE,URINE TRACE (Negative); NITRITE,URINE NEGATIVE (Negative); OCCULT BLOOD,URINE NEGATIVE (Negative); PH,URINE 6.5 (5.0-8.0); PROTEIN,URINE NEGATIVE (Negative); UROBILINOGEN,URINE 0.2 (0.2-1.0)
[2023-10-10 15:59] LABS: BACTERIA,URINE FEW /hpf (FEW); MUCUS,URINE FEW /hpf (FEW); RBC,URINE 0-5 /hpf (0-5); SQUAMOUS EPITHELIAL CELLS,UR 0-5 /hpf (0-5); WBC,URINE 0-5 /hpf (0-5)
[2023-10-10 16:34] LABS: ALANINE AMINOTRANSFERASE,ALT 24 U/L (14-59); ALBUMIN 4.1 g/dl (3.4-5.0); ALKALINE PHOSPHATASE 90 U/L (46-116); ANION GAP 19.3 (5-15); ASPARTATE AMNIOTRANSFERASE,AST 13 U/L (15-37); BILIRUBIN TOTAL 0.2 mg/dL (0.2-1.0); BLOOD UREA NITROGEN,BUN 10 mg/dL (7-18); BUN/CREATININE RATIO 16.7 (14-18); C-REACTIVE PROTEIN 0.32 mg/dL (<0.30); CALCIUM 9.7 mg/dL (8.5-10.1); CARBON DIOXIDE,CO2 22 mEq/L (21-32); CHLORIDE,CL 103 mEq/L (98-107); CREATININE 0.6 mg/dL (0.55-1.02); ESTIMATED GFR 118 mL/min (>60); GLUCOSE RANDOM 91 mg/dL (70-99); LIPASE 54 U/L (16-77); POTASSIUM,K 3.3 mEq/L (3.5-5.1); PROTEIN TOTAL,TP 8.1 g/dl (6.4-8.2); SODIUM,NA 141 mEq/L (136-145)
[2023-10-10 16:43] LABS: HCG QUANTITATIVE < 1.0 mIU/mL
== END 2023-10-10 18:06 | disposition home or self-care (01) ==
LOC: JD.ED 14:47
DX: K27.9 Peptic ulcer, site unspecified, unspecified as acute or chronic, without hemorrhage or perforation (principal); Z88.5 Allergy status to narcotic agent; Z79.899 Other long term (current) drug therapy; Z86.19 Personal history of other infectious and parasitic diseases; Z86.16 Personal history of COVID-19
CPT/HCPCS: 36415; 80053; 81001; 83690; 84702; 85025; 86140; 87086; 93005; 96361; 96374; 96375; 96376; 99284; J1170; J3490; J7120; 93010

== ENCOUNTER 2023-10-15 06:44 | Day surgery (SDC) | payer OTHER ==
[~2023-10-15 06:44] MED LIST: Dexamethasone 4 MG/ML 5 ML MDV ONE; Ketorolac 30 MG/ML SDV ONE; Lactated Ringers 1,000 ML ONE; Lidocaine 1% 4 ML ONE; Midazolam 1 MG/ML 2 ML SDV ONE; Ondansetron 4 MG/2 ML SDV ONE; Propofol 200 MG/20 ML SDV ONE; Rocuronium 50 MG/5 ML Vial ONE; Sodium Chloride 0.9% 10 ML Syringe FLUSH PRN; Sodium Chloride 0.9% 10 ML Syringe FLUSH SCH; ceFAZolin 2 GM Vial ONE; fentaNYL 250 MCG/5 ML SDV ONE
[2023-10-15] MEDS: Lactated Ringers 1,000 ML IV SCH (07:05)
[2023-10-15] MEDS ORDERED: dexmedeTOMIDine HCl 200 MCG/2 ML SDV ONE (07:09)
[2023-10-15] MEDS ORDERED: Neostigmine Methylsulfate 10 MG/10 ML MDV ONE ×2 (07:10→07:31)
[2023-10-15 07:26] LABS: APPEARANCE,URINE CLEAR (Clear); BILIRUBIN,URINE NEGATIVE (Negative); COLOR,URINE YELLOW (Yellow); GLUCOSE,URINE NEGATIVE (Negative); KETONES,URINE NEGATIVE (Negative); LEUKOCYTE ESTERASE,URINE 2+ (Negative); NITRITE,URINE NEGATIVE (Negative); OCCULT BLOOD,URINE NEGATIVE (Negative); PROTEIN,URINE NEGATIVE (Negative); UROBILINOGEN,URINE 0.2 (0.2-1.0)
[2023-10-15] MEDS ORDERED: ePHEDrine 50 MG/ML SDV ONE (07:32)
[2023-10-15 07:55] LABS: BACTERIA,URINE FEW /hpf (FEW); MUCUS,URINE FEW /hpf (FEW); RBC,URINE 0-5 /hpf (0-5); WBC,URINE 0-5 /hpf (0-5)
[2023-10-15] MEDS ORDERED: HYDROmorphone 0.5 MG/0.5 ML Syringe IVPUSH PRN (08:42)
[2023-10-15] MEDS: Ondansetron 4 MG/2 ML SDV IVPUSH PRN (10:12)
[2023-10-15] MEDS: fentaNYL 100 MCG/2 ML SDV IVPUSH PRN (10:14)
[2023-10-15] MEDS: Bupivacaine 0.25% 10 ML SDV ONE (10:55)
[2023-10-15] MEDS: EPINEPHrine 1 MG/ML SDV ONE (10:56)
[2023-10-15] MEDS: Acetaminophen/oxyCODONE 325-5 MG Tab PO PRN (11:25)
== END 2023-10-15 12:35 | disposition home or self-care (01) ==
LOC: JD.SDS 06:44
PROVIDERS: ATTEND Obstetrics & Gynecology
DX: N81.6 Rectocele (principal); N81.10 Cystocele, unspecified; N36.41 Hypermobility of urethra; N39.3 Stress incontinence (female) (male); F41.9 Anxiety disorder, unspecified; F32.A Depression, unspecified; K21.9 Gastro-esophageal reflux disease without esophagitis; G40.909 Epilepsy, unspecified, not intractable, without status epilepticus; Z88.5 Allergy status to narcotic agent; Z79.899 Other long term (current) drug therapy; Z97.5 Presence of (intrauterine) contraceptive device
CPT/HCPCS: 81001; 81025; A9270-GY; C1771; J0171; J0690; J1100; J1596; J1885; J2250; J2405; J2704; J2710; J3010; J3490; J7120